=== PATIENT | female | born 1980 | race Caucasian/White ===

== ENCOUNTER 2017-08-18 09:44 | Emergency (ER) | payer SELFPAY ==
[2017-08-18] MEDS ORDERED: Sodium Chloride 0.9% 1000 ML 1,000 ML IV STA (09:57)
[2017-08-18] MEDS ORDERED: Pepcid 20 MG VIAL IV ONE ×2 (09:57→10:08)
[2017-08-18] MEDS ORDERED: MORPHINE SULFATE 4 MG INJ IV ONE (09:57)
[2017-08-18 10:00] VITALS: O2SAT 96
[2017-08-18] MEDS ORDERED: MORPHINE SULFATE 4 MG INJ ONE (10:08)
[2017-08-18] MEDS ORDERED: Sodium Chloride 0.9% 1000 ML 1,000 ML ONE (10:08)
--- NOTE | 2017-08-18 10:12 | ERPHSYRPT ---
- History of Present Illness Time Seen by Provider: 08/18/17 10:10 Historian: patient Exam Limitations: no limitations Patient Subjective Stated Complaint: mid abd pain since last night. vomitied times one today Triage Nursing Assessment: patient crying, holding abd. skin w/d, color normal , resp nonlabored. abd soft, normal bowel sounds. Physician History: mid abdominal pain since last night. vomiting times one today Timing/Duration: today Activities at Onset: none Quality: cramping Abdominal Pain Onset Location: epigastric Pain Radiation: back Severity of Pain-Max: moderate Severity of Pain-Current: moderate Associated Symptoms: loss of appetite, nausea, vomiting Previous symptoms: no prior history Allergies/Adverse Reactions: nickel [Nickel] Allergy (Mild, Verified 08/18/17 09:56) Swelling Home Medications: Hydrocodone Bit/Acetaminophen [[place] 5/325Mg] 1 each PO UD PRN 12/28/14 [History ] Metoprolol Succinate [Toprol Xl] 0 mg PO DAILY 12/28/14 [History] Hx Tetanus, Diphtheria Vaccination/Date Given: No Hx Influenza Vaccination/Date Given: No Hx Pneumococcal Vaccination/Date Given: No - Review of Systems Constitutional: No Fever, No Chills Eyes: No Symptoms Ears, Nose, & Throat: No Symptoms Respiratory: No Cough, No Dyspnea Cardiac: No Chest Pain, No Edema, No Syncope Abdominal/Gastrointestinal: Abdominal Pain, Nausea, Vomiting, Appetite Changes, No Diarrhea, No Constipation, No Hematemesis, No Hematochezia, No Melena, No Dysphagia Genitourinary Symptoms: No Dysuria Musculoskeletal: No Back Pain, No Neck Pain Skin: No Rash Neurological: No Dizziness, No Focal Weakness, No Sensory Changes Psychological: No Symptoms Endocrine: No Symptoms All Other Systems: Reviewed and Negative - Past Medical History Pertinent Past Medical History: No Neurological History: No Pertinent History ENT History: No Pertinent History Cardiac History: No Pertinent History Respiratory History: No Pertinent History Endocrine Medical History: No Pertinent History Musculoskeletal History: No Pertinent History GI Medical History: No Pertinent History History: No Pertinent History Psycho-Social History: No Pertinent History Female Reproductive Disorders: No Pertinent History Other Medical History: pt denies any past medical issues - Past Surgical History Past Surgical History: Yes Neuro Surgical History: No Pertinent History Cardiac: No Pertinent History Respiratory: No Pertinent History Gastrointestinal: No Pertinent History Genitourinary: No Pertinent History Musculoskeletal: No Pertinent History Female Surgical History: Section, Tubal Ligation - Social History Smoking Status: Current every day smoker How long have you smoked: yrs Exposure to second hand smoke: No Drug Use: none Patient Lives Alone: No Significant Family History: no pertinent family hx - Female History Hx Last Menstrual Period: now Hx Now: No - Nursing Vital Signs Nursing Vital Signs: Initial Vital Signs Pulse Rate 64 08/18/17 09:47 Respiratory Rate 20 08/18/17 09:47 Blood Pressure 194/94 08/18/17 09:47 O2 Sat by Pulse Oximetry 96 08/18/17 09:47 Pain Scale Pain Intensity 10 - Physical Exam General Appearance: no apparent distress, alert Eye Exam: PERRL/EOMI, eyes nml inspection Ears, Nose, Throat Exam: normal ENT inspection, pharynx normal, moist mucous membranes Neck Exam: normal inspection, non-tender, supple, full range of motion Respiratory Exam: normal breath sounds, lungs clear, No respiratory distress Cardiovascular Exam: regular rate/rhythm, normal heart sounds Gastrointestinal/Abdomen Exam: soft, tenderness (epigastric area), No mass Back Exam: normal inspection, normal range of motion, No CVA tenderness, No vertebral tenderness Extremity Exam: normal inspection, normal range of motion, pelvis stable Neurologic Exam: alert, oriented x 3, cooperative, normal mood/affect, nml cerebellar function, sensation nml, No motor deficits Skin Exam: normal color, warm, dry SpO2: 96 Oxygen Delivery: Room Air - Course Nursing assessment & vital signs reviewed: Yes - CT Exams Abdomen/Pelvis CT Interpretation: Tele-radiologist Report Ordered Tests: Active Orders 24 hr Category Date Time Status ABDOMEN AND PELVIS W/0 CONTRAS [CT] Stat Exams 08/18/17 10:41 Taken AMYLASE Stat Lab 08/18/17 10:13 Completed CBC W DIFF Stat Lab 08/18/17 10:13 Completed CMP Stat Lab 08/18/17 10:13 Completed CULTURE,URINE Stat Lab 08/18/17 10:30 Received HCG QUALITATIVE,SERUM Stat Lab 08/18/17 10:13 Completed LIPASE Stat Lab 08/18/17 10:13 Completed Lactic Acid Stat Lab 08/18/17 10:11 Completed UA W/ MICROSCOPIC Stat Lab 08/18/17 10:30 Completed Urine Triage Profile Stat Lab 08/18/17 10:30 Completed Medication Summary Discontinued Medications Generic Name Dose Route Start Last Admin Trade Name Freq PRN Reason Stop Dose Admin Famotidine 20 mg 08/18/17 09:57 08/18/17 10:11 Pepcid 20 Mg Vial IV 08/18/17 09:58 20 mg STAT ONE Administration Famotidine Confirm 08/18/17 10:08 Pepcid 20 Mg Vial Administered 08/18/17 10:09 Dose 20 mg IV .STK-MED ONE Fentanyl Citrate 50 mcg 08/18/17 10:32 08/18/17 10:37 Sublimaze 100 Mcg/2 Ml IV 08/18/17 10:33 50 mcg STAT ONE Administration Fentanyl Citrate Confirm 08/18/17 10:35 Sublimaze 100 Mcg/2 Ml Administered 08/18/17 10:36 Dose 100 mcg .ROUTE .STK-MED ONE Sodium Chloride 1,000 mls @ 999 mls/hr 08/18/17 09:57 08/18/17 10:11 Sodium Chloride 0.9% 1000 Ml IV 08/18/17 10:57 999 mls/hr .Q1H1M STA Administration Sodium Chloride Confirm 08/18/17 10:08 Sodium Chloride 0.9% 1000 Ml Administered 08/18/17 10:09 Dose 1,000 mls @ ud .ROUTE .STK-MED ONE Cefazolin Sodium/Dextrose 1 gm in 50 mls @ 100 mls/hr 08/18/17 10:45 11:03 Kefzol 1 Gm/50 Ml Premix IV 08/18/17 11:14 100 mls/hr STAT STA Administration Cefazolin Sodium/Dextrose Confirm 08/18/17 10:50 Kefzol 1 Gm/50 Ml Premix Administered 08/18/17 10:51 Dose 1 gm in 50 mls @ ud IV .STK-MED ONE Morphine Sulfate 4 mg 08/18/17 09:57 08/18/17 10:11 Morphine Sulfate 4 Mg Inj IV 08/18/17 09:58 4 mg STAT ONE Administration Morphine Sulfate Confirm 08/18/17 10:08 Morphine Sulfate 4 Mg Inj Administered 08/18/17 10:09 Dose 4 mg .ROUTE .STK-MED ONE Lab/Rad Data: Laboratory Result Diagrams 08/18/17 10:13 08/18/17 10:13 Laboratory Results 08/18/17 08/18/17 08/18/17 Range/Units 10:30 10:30 10:13 WBC (4.0-10.5) K/mm3 RBC (4.1-5.4) M/mm3 Hgb (12.0-16.0) gm/dl Hct (35-47) % MCV (78-100) fl MCH (26-32) pg MCHC (32-36) g/dl RDW (11.5-14.0) % Plt Count (150-450) K/mm3 MPV (6-9.5) fl Gran % (36.0-66.0) % Lymphocytes % (24.0-44.0) % Monocytes % (0.0-12.0) % Eosinophils % (0.00-5.0) % Basophils % (0.0-0.4) % Basophils # (0-0.4) Sodium (136-145) mEq/L Potassium (3.5-5.1) mEq/L Chloride (98-107) mEq/L Carbon Dioxide (21-32) mEq/L Anion Gap (5-15) MEQ/L BUN (9-20) mg/dL Creatinine (0.55-1.30) mg/dl Estimated GFR ML/MIN Glucose (70-110) MG/DL Lactic Acid (0.4-2.0) Calcium (8.5-10.1) mg/dL Total Bilirubin (0.2-1.0) mg/dL AST (15-37) U/L ALT (12-78) U/L Alkaline Phosphatase (46-116) U/L Serum Total Protein (6.4-8.2) gm/dL Albumin (3.4-5.0) g/dL Amylase (25-115) U/L Lipase (73-393) U/L Serum , Qual NEGATIVE (Negative) Ur Collection Type CLEAN CATCH Urine Color YELLOW (YELLOW) Urine Appearance HAZY (CLEAR) Urine pH 7.0 (5-6) Ur Specific [place] 1.010 (1.005-1.025) Urine Protein NEGATIVE (Negative) Urine Ketones NEGATIVE (NEGATIVE) Urine Blood 250 (0-5) Josh/ul Urine Nitrite NEGATIVE (NEGATIVE) Urine Bilirubin NEGATIVE (NEGATIVE) Urine Urobilinogen NORMAL (0-1) mg/dL Ur Leukocyte Esterase TRACE (NEGATIVE) Urine Microscopic RBC 0-2 (0-2) /HPF Urine Microscopic WBC 0-2 (0-5) /HPF Ur Epithelial Cells FEW (FEW) /HPF Urine Bacteria FEW (NEGATIVE) /HPF Urine Mucus SLIGHT (NEGATIVE) /HPF Urine Culture Reflexed YES (NO) Urine Glucose NEGATIVE (NEGATIVE) mg/dL Urine Opiates Level POS. (NEGATIVE) Ur Methadone NEG. (NEGATIVE) Urine Barbiturates NEG. (NEGATIVE) Ur Phencyclidine (PCP) NEG. (NEGATIVE) Urine Amphetamine NEG. (NEGATIVE) U Benzodiazepine Level NEG. (NEGATIVE) Urine Cocaine NEG. (NEGATIVE) Urine Marijuana (THC) NEG. (NEGATIVE) Specimen Received 08-18 1030 08/18/17 08/18/17 08/18/17 Range/Units 10:13 10:13 10:11 WBC 12.2 H (4.0-10.5) K/mm3 RBC 4.38 (4.1-5.4) M/mm3 Hgb 13.9 (12.0-16.0) gm/dl Hct 41.7 (35-47) % MCV 95.2 (78-100) fl MCH 31.7 (26-32) pg MCHC 33.3 (32-36) g/dl RDW 12.5 (11.5-14.0) % Plt Count 179 (150-450) K/mm3 MPV 10.4 H (6-9.5) fl Gran % 81.6 H (36.0-66.0) % Lymphocytes % 12.5 L (24.0-44.0) % Monocytes % 4.6 (0.0-12.0) % Eosinophils % 1.1 (0.00-5.0) % Basophils % 0.2 (0.0-0.4) % Basophils # 0.02 (0-0.4) Sodium 138 (136-145) mEq/L Potassium 4.0 (3.5-5.1) mEq/L Chloride 107 (98-107) mEq/L Carbon Dioxide 19.8 L (21-32) mEq/L Anion Gap 15.0 (5-15) MEQ/L BUN 10 (9-20) mg/dL Creatinine 0.88 (0.55-1.30) mg/dl Estimated GFR > 60 ML/MIN Glucose 103 (70-110) MG/DL Lactic Acid 0.7 (0.4-2.0) Calcium 8.6 (8.5-10.1) mg/dL Total Bilirubin 0.20 (0.2-1.0) mg/dL AST 29 (15-37) U/L ALT 31 (12-78) U/L Alkaline Phosphatase 63 (46-116) U/L Serum Total Protein 7.0 (6.4-8.2) gm/dL Albumin 3.6 (3.4-5.0) g/dL Amylase 39 (25-115) U/L Lipase 109 (73-393) U/L Serum , Qual (Negative) Ur Collection Type Urine Color (YELLOW) Urine Appearance (CLEAR) Urine pH (5-6) Ur Specific [place] (1.005-1.025) Urine Protein (Negative) Urine Ketones (NEGATIVE) Urine Blood (0-5) Josh/ul Urine Nitrite (NEGATIVE) Urine Bilirubin (NEGATIVE) Urine Urobilinogen (0-1) mg/dL Ur Leukocyte Esterase (NEGATIVE) Urine Microscopic RBC (0-2) /HPF Urine Microscopic WBC (0-5) /HPF Ur Epithelial Cells (FEW) /HPF Urine Bacteria (NEGATIVE) /HPF Urine Mucus (NEGATIVE) /HPF Urine Culture Reflexed (NO) Urine Glucose (NEGATIVE) mg/dL Urine Opiates Level (NEGATIVE) Ur Methadone (NEGATIVE) Urine Barbiturates (NEGATIVE) Ur Phencyclidine (PCP) (NEGATIVE) Urine Amphetamine (NEGATIVE) U Benzodiazepine Level (NEGATIVE) Urine Cocaine (NEGATIVE) Urine Marijuana (THC) (NEGATIVE) Specimen Received - Progress Progress: improved, pain not gone completely Progress Note: 08/18/17 11:25 Patient is feeling much better, though she still has some episode of nausea. Patient states that she drank hard liquor 24 hours ago and since then she has been sick. Patient is strongly advised not to drink hard liquor as well as stay away from fatty and greasy food as her CAT scan is showing weekly calcified gallstone in gallbladder. Patient is advised to take Pepcid 20 mg twice a day [id number] as well as Nexium 40 mg at night, which is also available [id number]. She is advised to use Mylanta for stomach pain relief. Patient and her . They both understood the instructions. Counseled pt/family regarding: lab results, diagnosis, need for follow-up, rad results - Departure Time of Disposition: 11:32 Departure Disposition: Home Clinical Impression: UTI (urinary tract infection) Qualifiers: Urinary tract infection type: site unspecified Hematuria presence: without hematuria Qualified Code(s): N39.0 - Urinary tract infection, site not specified GERD (gastroesophageal reflux disease) Qualifiers: Esophagitis presence: with esophagitis Qualified Code(s): K21.0 - Gastro- esophageal reflux disease with esophagitis Gall stone Qualifiers: Cholecystitis presence: without cholecystitis Biliary obstruction: without biliary obstruction Qualified Code(s): K80.20 - Calculus of gallbladder without cholecystitis without obstruction Condition: Stable Critical Care Time: Yes Critical Care Time(excluding separately billable procedures): 30-74 minutes Referrals: SERENITY MCCONNELL [Primary Care Provider] - Instructions: Abdominal Pain-Adult Additional Instructions: URINARY TRACT INFECTION 1. You will need to drink plenty of fluids in order to keep your urinary system flushed. These fluids should mainly consist of water and juices. 2. Take medications as directed. You need to completely finish any antiobiotic prescription given. 3. Try to avoid coffee, tea, alcohol, and seasoned foods as they may cause bladder irritation. 4. If signs and symptoms persist after 3-4 days, you will need to follow up with your family physician. 5. Female Patients: A. Avoid intercourse for 3-4 days. B. Empty bladder before and after intercourse to reduce risk of re- infection. C. After emptying bladder, wipe from front to back to reduce the risk of re- infection. Please take Pepcid 20 mg twice a day for 7 days, Nexium 40 mg at night for 7 days for your acid reflux and abdominal pain. These both medicines are over-the -counter available. Please stay away from fatty and greasy food, as well as alcohol beverage. Please take Mylanta to help to soothe your stomach pain. Please take antibiotic as prescribed for 7 days for your urinary tract infection. Follow-up with your primary care physician for further management of your above problems. If symptoms get worse, come back to the emergency room. Prescriptions: Smz/Tmp Ds Tablet [Bactrim Ds Tablet] 1 udtab PO BID #20 tablet Promethazine HCl 25 mg PO QIDPRN PRN #20 tablet PRN Reason: Nausea/Vomiting
[2017-08-18 10:14] LABS: BASOPHIL % 0.2 % (0.0-0.4); Eosinophil % 1.1 % (0.00-5.0); Granulocytes % 81.6 % (36.0-66.0); Lymphocytes % 12.5 % (24.0-44.0); Mean Cell Volume 95.2 fl (78-100); Mean Corpuscular Hemoglobin 31.7 pg (26-32); Mean Platelet Volume 10.4 fl (6-9.5); Monocytes % 4.6 % (0.0-12.0); Platelet Count 179 K/mm3 (150-450); Red Blood Count 4.38 M/mm3 (4.1-5.4); Red Cell Distribution Width 12.5 % (11.5-14.0); White Blood Count 12.2 K/mm3 (4.0-10.5)
[2017-08-18] MEDS ORDERED: SUBLIMAZE 100 MCG/2 ML IV ONE (10:32)
[2017-08-18] MEDS ORDERED: SUBLIMAZE 100 MCG/2 ML ONE (10:35)
[2017-08-18 10:37] LABS: BLOOD UREA NITROGEN 10 mg/dL (9-20); CHLORIDE 107 mEq/L (98-107); Carbon Dioxide 19.8 mEq/L (21-32); Glucose 103 MG/DL (70-110); SODIUM 138 mEq/L (136-145)
[2017-08-18 10:38] LABS: ALBUMIN 3.6 g/dL (3.4-5.0); ALKALINE PHOSPHATASE 63 U/L (46-116); LIPASE 109 U/L (73-393); SGOT/AST 29 U/L (15-37); SGPT/ALT 31 U/L (12-78)
[2017-08-18] MEDS ORDERED: KEFZOL 1 GM/50 ML PREMIX** 1 GM/50 ML IVPB IV STA (10:45)
[2017-08-18 10:48] VITALS: BP 147/75; PULSE 66
[2017-08-18 10:48] LABS: Bilirubin NEGATIVE (NEGATIVE); Blood 250 Ery/ul (0-5); COMPLETE URINE MICROSCOPIC? YES; Collection Type CLEAN CATCH; Glucose NEGATIVE (NEGATIVE); Leukocyte Esterase TRACE (NEGATIVE)
[2017-08-18 10:49] LABS: ADD URINE CULTURE? YES (NO); Bacteria FEW /HPF (NEGATIVE); Epithelial Cells FEW /HPF (FEW); Mucus SLIGHT /HPF (NEGATIVE); WBC 0-2 /HPF (0-5)
[2017-08-18] MEDS ORDERED: KEFZOL 1 GM/50 ML PREMIX** 1 GM/50 ML IVPB IV ONE (10:50)
[2017-08-18] MEDS ORDERED: GI COCKTAIL 45 ML (Maalox/Lidocaine) PO ONE (11:34)
[2017-08-18] MEDS ORDERED: PHENERGAN 25 MG PO PRN (11:35)
[2017-08-18] MEDS ORDERED: XYLOCAINE HCl Viscous ONE (11:40)
[2017-08-18] MEDS ORDERED: MAALOX ES 30 ML UNIT DOSE ONE (11:40)
[2017-08-18] MEDS ORDERED: PHENERGAN 25 MG ONE (11:42)
--- NOTE | 2017-08-18 21:16 | XRAY ---
Indication: Abdominal pain. Multiple contiguous axial images obtained through the abdomen and pelvis without contrast as ordered. Comparison: September 20, 2014. Lung bases demonstrate stable left base/granulomas. No infiltrate, consolidation, or effusion. Heart is not enlarged. Noncontrasted stomach and bowel loops appear nonobstructed. Normal appendix. Minimal sigmoid diverticulosis without diverticulitis. Tampon in situ with now tiny cul-de-sac fluid presumed from a ruptured/leaking cyst. No free air. Stable fatty liver. There is now a 2.2 cm gallstone. Remaining liver, pancreas, spleen, adrenal glands, kidneys, ureters, bladder, and aorta appear unremarkable for noncontrast exam. Osseous structures intact. Impression: 1. New gallstone. Gallbladder sonogram may yield further information if clinically warranted. 2. Tiny cul-de-sac fluid presumed from ruptured/leaking cyst. 3. Minimal sigmoid diverticulosis. 4. Fatty liver. Comment: Preliminary interpretation was made by C. No critical discrepancy. CTDI 28.13
== END 2017-08-18 11:57 | disposition home or self-care (01) ==
LOC: ED 09:44
DX: N39.0 Urinary tract infection, site not specified (principal); K21.0 Gastro-esophageal reflux disease with esophagitis; K80.20 Calculus of gallbladder without cholecystitis without obstruction; R10.9 Unspecified abdominal pain; R11.2 Nausea with vomiting, unspecified; Z79.899 Other long term (current) drug therapy; Z79.891 Long term (current) use of opiate analgesic
CPT/HCPCS: 36000; 36415; 74176; 80053; 80307; 81000; 82150; 83605; 83690; 84703; 85025; 87086; 96360; 96365; 96374; 96375; 99284; J0690; J2270; J3010; A9270-GY

== ENCOUNTER 2020-03-23 03:40 | Emergency (ER) | payer SELFPAY ==
--- NOTE | 2020-03-23 04:03 | ERPHSYRPT ---
- History of Present Illness Time Seen by Provider: 03/23/20 03:40 Source: patient, family Exam Limitations: clinical condition Physician History: This is a 39-year-old obese white female who has had a history in the distant past of arrhythmias and was taking metoprolol for it. She is not taking any medication at this time. It was difficult to obtain history from the patient because of her clinical condition. Meaning, she was having chest pain that was central sharp and nonradiating. In addition, she was slurring her speech and was very tearful and searching for words. However, we were able to obtain history from the patient's spouse and daughter. Patient woke up this morning and was fine during the day. She had had several interactions with her daughter and text communications with her prior to her going to her overnight shift at 6 PM. At approximately 2:25 AM the patient texted her and stated that she was having some "problems with her heart" and was going to leave work early. Her daughter picked her up from work and went home rather than the hospital. Patient began having some chest pain as described above and was confused and searching for words and slurring her speech. Patient states that she is never had a thing like this before. Although the patient denied any new stressful situations or conditions, the states that in the past week she has been working on it and difficult hours at work. Meaning she normally works at 2 PM to 10 PM shift and is now doing 12-hour shifts and overnight shift 6 PM to 6 AM. Patient denies illicit drug use. Patient states that her left side feels numb and and weaker than her right side. Timing/Duration: today Severity: moderate Associated Symptoms: chest pain, weakness Allergies/Adverse Reactions: nickel [Nickel] Allergy (Mild, Verified 03/23/20 05:32) Swelling Home Medications: No Reportable Medications [No Reported Medications] 03/23/20 [History] Hx Tetanus, Diphtheria Vaccination/Date Given: No Hx Influenza Vaccination/Date Given: No Hx Pneumococcal Vaccination/Date Given: No Travel Risk - International Travel Have you traveled outside of the country in past 3 weeks: No - Coronavirus Screening Are you exhibiting any of the following symptoms?: No Close contact with a COVID-19 positive Pt in past 14-21 Days: No - Review of Systems Constitutional: Lethargy, Weakness Eyes: No Symptoms Ears, Nose, & Throat: No Symptoms Respiratory: No Symptoms Cardiac: Chest Pain Abdominal/Gastrointestinal: No Symptoms Genitourinary Symptoms: No Symptoms Skin: No Symptoms Neurological: Parasthesia (Left side) Psychological: No Symptoms Endocrine: No Symptoms Hematologic/Lymphatic: No Symptoms Immunological/Allergic: No Symptoms All Other Systems: Reviewed and Negative - Past Medical History Pertinent Past Medical History: No Neurological History: No Pertinent History ENT History: No Pertinent History Cardiac History: No Pertinent History Respiratory History: No Pertinent History Endocrine Medical History: No Pertinent History Musculoskeletal History: No Pertinent History GI Medical History: No Pertinent History History: No Pertinent History Psycho-Social History: No Pertinent History Female Reproductive Disorders: No Pertinent History Other Medical History: pt denies any past medical issues - Past Surgical History Past Surgical History: Yes Neuro Surgical History: No Pertinent History Cardiac: No Pertinent History Respiratory: No Pertinent History Gastrointestinal: No Pertinent History Genitourinary: No Pertinent History Musculoskeletal: No Pertinent History Female Surgical History: Section, Tubal Ligation - Social History Smoking Status: Current every day smoker How long have you smoked: yrs Exposure to second hand smoke: No Drug Use: none Patient Lives Alone: No Significant Family History: no pertinent family hx - Female History Hx Now: No - Nursing Vital Signs Nursing Vital Signs: Initial Vital Signs Temperature 97.2 F 03/23/20 03:51 Pulse Rate 74 03/23/20 03:51 Respiratory Rate 16 03/23/20 03:51 Blood Pressure 151/99 03/23/20 03:51 O2 Sat by Pulse Oximetry 100 03/23/20 03:51 Pain Scale Pain Intensity 0 - Physical Exam General Appearance: moderate distress, anxiety, lethargy, obese Eye Exam: PERRL/EOMI, eyes nml inspection Ears, Nose, Throat Exam: normal ENT inspection, moist mucous membranes Neck Exam: normal inspection, non-tender, supple, full range of motion Respiratory Exam: normal breath sounds, chest tenderness, lungs clear, No respiratory distress, No airway intact Cardiovascular Exam: regular rate/rhythm, normal heart sounds, normal peripheral pulses Gastrointestinal/Abdomen Exam: soft, normal bowel sounds, No tenderness Pelvic Exam: not done Rectal Exam: not done Back Exam: normal inspection, normal range of motion, No CVA tenderness Extremity Exam: normal inspection, normal range of motion, pelvis stable, parasthesia (And which she said they got for the neuro score she appreciated that paperwork may she has not had a) Neurologic Exam: alert, oriented x 3, cooperative, rough rice grader II-XII nml as tested, normal mood/affect, disoriented, confusion, intoxicated appearance, slurred speech, No facial droop Skin Exam: normal color, warm, dry Lymphatic Exam: No adenopathy SpO2 Interpretation: normal O2 Delivery: Room Air - Course Nursing assessment & vital signs reviewed: Yes EKG Interpreted by Me: RATE (60), Sinus Rhythm, NORMAL AXIS, NORMAL INTERVALS, NORMAL QRS, Other (No acute ischemic changes. There is no comparison EKG available) Ordered Tests: Active Orders 24 hr Category Date Time Status Accucheck STAT Care 03/23/20 03:48 Active Stamping Bench Die Maker STAT Care 03/23/20 03:50 Active Catheter-[place] STAT Care 03/23/20 03:48 Active EKG-ER Only STAT Care 03/23/20 03:48 Active NPO (ED) STAT Care 03/23/20 03:48 Active Pulse Oximetry (ED) STAT Care 03/23/20 03:48 Active CHEST 1 VIEW (PORTABLE) Stat Exams 03/23/20 03:[address] ANGIOGRAPHY NECK [CT] Stat Exams 03/23/20 05:20 Ordered CTA HEAD W AND/OR WO CONTRAST [CT] Urgent Exams 03/23/20 05:19 Ordered HEAD WITHOUT CONTRAST [CT] Stat Exams 03/23/20 03:49 Taken CBC W DIFF Stat Lab 03/23/20 03:59 Completed CMP Stat Lab 03/23/20 03:59 Completed CULTURE,URINE Stat Lab 03/23/20 04:38 Received D-DIMER QUANTITATIVE Stat Lab 03/23/20 03:59 Completed HCG,QUALITATIVE URINE Stat Lab 03/23/20 04:38 Completed PROTIME WITH INR Stat Lab 03/23/20 03:59 Completed TROPONIN Q3H Lab 03/23/20 04:05 Completed TROPONIN Q3H Lab 03/23/20 07:00 Ordered TROPONIN Q3H Lab 03/23/20 10:00 Ordered TROPONIN Q3H Lab 03/23/20 13:00 Ordered TROPONIN Q3H Lab 03/23/20 16:00 Ordered UA W/RFX UR CULTURE Stat Lab 03/23/20 04:38 Completed Medication Summary Discontinued Medications Generic Name Dose Route Start Last Admin Trade Name Freq PRN Reason Stop Dose Admin Alteplase, Recombinant 90 mg 03/23/20 06:15 03/23/20 06:17 Activase 100 Mg IV 03/23/20 06:16 90 mg STAT STA Administration Famotidine 40 mg 03/23/20 06:30 03/23/20 06:32 Pepcid 20 Mg Vial IV 03/23/20 06:31 40 mg STAT ONE Administration Famotidine Confirm 03/23/20 06:30 Pepcid 20 Mg Vial Administered 03/23/20 06:31 Dose 40 mg IV .STK-MED ONE Ondansetron HCl 4 mg 03/23/20 06:05 03/23/20 06:06 Zofran 4 Mg/2 Ml Vial IV 03/23/20 06:06 4 mg STAT ONE Administration Ondansetron HCl Confirm 03/23/20 06:04 Zofran 4 Mg/2 Ml Vial Administered 03/23/20 06:05 Dose 4 mg .ROUTE .STK-MED ONE Ondansetron HCl 4 mg 03/23/20 06:30 03/23/20 06:32 Zofran 4 Mg/2 Ml Vial IV 03/23/20 06:31 4 mg STAT ONE Administration Ondansetron HCl Confirm 03/23/20 06:30 Zofran 4 Mg/2 Ml Vial Administered 03/23/20 06:31 Dose 4 mg .ROUTE .STK-MED ONE Tranexamic Acid Confirm 03/23/20 04:52 Tranexamic Acid 1000 Mg/10 Ml Administered 03/23/20 04:53 Dose 1,000 mg .ROUTE .STK-MED ONE Lab/Rad Data: Laboratory Result Diagrams 03/23/20 03:59 03/23/20 03:59 Laboratory Results 03/23/20 03/23/20 03/23/20 Range/Units 04:38 04:38 04:05 WBC (4.0-10.5) K/mm3 RBC (4.1-5.4) M/mm3 Hgb (12.0-16.0) gm/dl Hct (35-47) % MCV (78-100) fl MCH (26-32) pg MCHC (32-36) g/dl RDW (11.5-14.0) % Plt Count (150-450) K/mm3 MPV (7.5-11.0) fl Gran % (36.0-66.0) % Eos # (Auto) (0-0.5) Absolute Lymphs (auto) (1.0-4.6) Absolute Monos (auto) (0.0-1.3) Lymphocytes % (24.0-44.0) % Monocytes % (0.0-12.0) % Eosinophils % (0.00-5.0) % Basophils % (0.0-0.4) % Absolute Granulocytes (1.4-6.9) Basophils # (0-0.4) PT (9.95-12.35) SECONDS INR (0.8-3.0) D-Dimer (215-500) ng/mL Sodium (137-145) mmol/L Potassium (3.5-5.1) mmol/L Chloride (98-107) mmol/L Carbon Dioxide (22-30) mmol/L Anion Gap (5-15) MEQ/L BUN (7-17) mg/dL Creatinine (0.52-1.04) mg/dL Estimated GFR ML/MIN Glucose (74-106) mg/dL Calcium (8.4-10.2) mg/dL Total Bilirubin (0.2-1.3) mg/dL AST (14-36) U/L ALT (0-35) U/L Alkaline Phosphatase (38-126) U/L Troponin I < 0.012 (0.000-0.034) ng/mL Serum Total Protein (6.3-8.2) g/dL Albumin (3.5-5.0) g/dL Urine Color LEE (YELLOW) Urine Appearance SLIGHTLY CLOUDY (CLEAR) Urine pH 5.0 (5-6) Ur Specific [place] 1.031 (1.005-1.025) Urine Protein 30 (Negative) Urine Ketones SMALL (NEGATIVE) Urine Blood NEGATIVE (0-5) Josh/ul Urine Nitrite NEGATIVE (NEGATIVE) Urine Bilirubin NEGATIVE (NEGATIVE) Urine Urobilinogen 2 (0-1) mg/dL Ur Leukocyte Esterase NEGATIVE (NEGATIVE) Urine WBC (Auto) 0-2 (0-5) /HPF Urine RBC (Auto) NONE (0-2) /HPF U Hyaline Cast (Auto) 0-2 (0-2) /LPF U Epithel Cells (Auto) RARE (FEW) /HPF Urine Bacteria (Auto) NONE SEEN (NEGATIVE) /HPF Urine Mucus (Auto) SLIGHT (NEGATIVE) /HPF Urine Culture Reflexed ORDERED SEPARATELY (NO) Urine Glucose NEGATIVE (NEGATIVE) mg/dL Urine HCG, Qual NEGATIVE (Negative) 03/23/20 03/23/20 03/23/20 Range/Units 03:59 03:59 03:59 WBC 8.6 (4.0-10.5) K/mm3 RBC 4.26 (4.1-5.4) M/mm3 Hgb 13.6 (12.0-16.0) gm/dl Hct 41.0 (35-47) % MCV 96.2 (78-100) fl MCH 31.9 (26-32) pg MCHC 33.2 (32-36) g/dl RDW 13.3 (11.5-14.0) % Plt Count 213 (150-450) K/mm3 MPV 11.3 H (7.5-11.0) fl Gran % 59.6 (36.0-66.0) % Eos # (Auto) 0.22 (0-0.5) Absolute Lymphs (auto) 2.61 (1.0-4.6) Absolute Monos (auto) 0.63 (0.0-1.3) Lymphocytes % 30.4 (24.0-44.0) % Monocytes % 7.3 (0.0-12.0) % Eosinophils % 2.6 (0.00-5.0) % Basophils % 0.1 (0.0-0.4) % Absolute Granulocytes 5.12 (1.4-6.9) Basophils # 0.01 (0-0.4) PT 12.1 (9.95-12.35) SECONDS INR 1.07 (0.8-3.0) D-Dimer 291 (215-500) ng/mL Sodium 140 (137-145) mmol/L Potassium 3.9 (3.5-5.1) mmol/L Chloride 108 H (98-107) mmol/L Carbon Dioxide 19 L (22-30) mmol/L Anion Gap 16.2 H (5-15) MEQ/L BUN 13 (7-17) mg/dL Creatinine 0.92 (0.52-1.04) mg/dL Estimated GFR > 60.0 ML/MIN Glucose 98 (74-106) mg/dL Calcium 9.8 (8.4-10.2) mg/dL Total Bilirubin 0.70 (0.2-1.3) mg/dL AST 30 (14-36) U/L ALT 21 (0-35) U/L Alkaline Phosphatase 81 (38-126) U/L Troponin I (0.000-0.034) ng/mL Serum Total Protein 8.0 (6.3-8.2) g/dL Albumin 4.8 (3.5-5.0) g/dL Urine Color (YELLOW) Urine Appearance (CLEAR) Urine pH (5-6) Ur Specific [place] (1.005-1.025) Urine Protein (Negative) Urine Ketones (NEGATIVE) Urine Blood (0-5) Josh/ul Urine Nitrite (NEGATIVE) Urine Bilirubin (NEGATIVE) Urine Urobilinogen (0-1) mg/dL Ur Leukocyte Esterase (NEGATIVE) Urine WBC (Auto) (0-5) /HPF Urine RBC (Auto) (0-2) /HPF U Hyaline Cast (Auto) (0-2) /LPF U Epithel Cells (Auto) (FEW) /HPF Urine Bacteria (Auto) (NEGATIVE) /HPF Urine Mucus (Auto) (NEGATIVE) /HPF Urine Culture Reflexed (NO) Urine Glucose (NEGATIVE) mg/dL Urine HCG, Qual (Negative) - Progress Progress: improved, re-examined Progress Note: 03/23/20 05:08 CAT scan of the head reveals no acute intracranial abnormality. There are no tumors and no hemorrhages present. There is no midline shift. Medical decision making: This patient, although CAT scan is negative for any acute intracranial abnormality, clinically is having a cerebral infarct. Tele- neurology was consulted. Dr. Levine is the neurologist. He performed the tele- neurology consultation and evaluation. He agrees that TPA should be started. He and I discussed the benefits and risks of the use of TPA in detail with patient and family. The patient and family family agree to proceed. Dr. Levine is staying on line during the infusion of the bolus and starting of the maintenance infusion. TPA bolus started at approximately 5:10 AM. 03/23/20 05:11 03/23/20 05:16 Dr. Levine also wants a CAT scan with IV contrast of the head and neck. I reexamined the patient after the bolus has been infused. Clinically, she has rapidly improved. Her numbness and swollen tongue sensation has resolved. She is speaking more clearly and verbal responses are more rapid. It is obvious there is improvement. She is moving all her extremities near normal for her she states. 03/23/20 05:37 The patient's admission stroke scale was 12. The repeat stroke scale at 525, approximately 15 minutes after the bolus given and infusion started, decreased to a 3. I spoke to Dr. Simeon, the hospitalist at [facility]. I reviewed the patient history, condition, laboratory data, EKG results, and results of the CAT scan of the patient's head and the interaction with Dr. Levine the tele- neurologist. The plan is to perform a CTA of the head and neck as recommended by Dr. Levine then transfer the patient to [facility]. Dr. Simeon accepts the patient for transfer. 03/23/20 06:46 Patient has already been accepted to [facility]. The physician paperwork has been completed. We are waiting bed assignment. I will review the patient history, condition, laboratory results, EKG and current CAT scan findings with Dr. Morales. He will be aware that the CAT scan with contrast of the head and neck is pending and he will check up on that study result. Once that is completed, the results will be placed on the cloud and the patient will be transferred when bed assignment has occurred. Dr. Morales accepts patient at shift change. Counseled pt/family regarding: lab results, diagnosis, rad results - Departure Departure Disposition: Transfer Clinical Impression: Acute CVA (cerebrovascular accident) Condition: Stable Critical Care Time: Yes Critical Care Time(excluding separately billable procedures): Critical 30-74 mins Referrals: DOCTOR,NO FAMILY [Primary Care Provider] -
[2020-03-23 04:13] LABS: Absolute Neutrophil Ct (ANC) 5.12 (1.4-6.9); BASOPHIL % 0.1 % (0.0-0.4); Basophil (Absolute #) 0.01 (0-0.4); Eosinophil % 2.6 % (0.00-5.0); Eosinophil (Absolute #) 0.22 (0-0.5); Hemoglobin 13.6 gm/dl (12.0-16.0); INR 1.07 (0.8-3.0); Lymphocyte (Absolute #) 2.61 (1.0-4.6); Lymphocytes % 30.4 % (24.0-44.0); Mean Cell Volume 96.2 fl (78-100); Mean Corpuscular Hemoglobin 31.9 pg (26-32); Mean Corpuscular Hgb Concent. 33.2 g/dl (32-36); Mean Platelet Volume 11.3 fl (7.5-11.0); Monocyte (Absolute #) 0.63 (0.0-1.3); Monocytes % 7.3 % (0.0-12.0); Neutrophil % 59.6 % (36.0-66.0); PROTIME 12.1 SECONDS (9.95-12.35); Platelet Count 213 K/mm3 (150-450); Red Blood Count 4.26 M/mm3 (4.1-5.4); Red Cell Distribution Width 13.3 % (11.5-14.0); White Blood Count 8.6 K/mm3 (4.0-10.5)
[2020-03-23 04:20] LABS: ALBUMIN 4.8 g/dL (3.5-5.0); ALKALINE PHOSPHATASE 81 U/L (38-126); ANION GAP 16.2 MEQ/L (5-15); BLOOD UREA NITROGEN 13 mg/dL (7-17); CHLORIDE 108 mmol/L (98-107); Calcium 9.8 mg/dL (8.4-10.2); Carbon Dioxide 19 mmol/L (22-30); Creatinine 1 0.92 mg/dL (0.52-1.04); Glucose 98 mg/dL (74-106); Potassium 3.9 mmol/L (3.5-5.1); SGOT/AST 30 U/L (14-36); SGPT/ALT 21 U/L (0-35); SODIUM 140 mmol/L (137-145)
[2020-03-23] MEDS ORDERED: TRANEXAMIC ACID 1000 MG/10 ML ONE (04:52)
[2020-03-23 04:53] LABS: Appearance SLIGHTLY CLOUDY (CLEAR); Bilirubin NEGATIVE (NEGATIVE); Blood NEGATIVE Ery/ul (0-5); Epithelial Cells RARE /HPF (FEW); Glucose NEGATIVE (NEGATIVE); Hyaline Casts 0-2 /LPF (0-2); Ketones SMALL (NEGATIVE); Leukocyte Esterase NEGATIVE (NEGATIVE); Mucus SLIGHT /HPF (NEGATIVE); Nitrite NEGATIVE (NEGATIVE); Protein,Urine Dip 30 (Negative); Specific Gravity 1.031 (1.005-1.025); Urobilinogen 2 mg/dL (0-1); WBC 0-2 /HPF (0-5)
[2020-03-23 04:54] LABS: Bacteria NONE SEEN /HPF (NEGATIVE)
[2020-03-23] MEDS ORDERED: Zofran 4 MG/2 ML VIAL ONE ×2 (06:04→06:30)
[2020-03-23] MEDS ORDERED: Zofran 4 MG/2 ML VIAL IV ONE ×2 (06:05→06:30)
[2020-03-23 06:06] VITALS: O2SAT 99
[2020-03-23] MEDS ORDERED: Activase 100 MG IV STA (06:15)
[2020-03-23] MEDS ORDERED: Pepcid 20 MG VIAL IV ONE ×2 (06:30)
[2020-03-23 07:07] VITALS: BP 130/87; PULSE 63
--- NOTE | 2020-03-23 09:14 | XRAY ---
Indication: Acute mental status change. Slurred speech. Stroke. Multiple contiguous axial images obtained through the head without contrast. Comparison: None Normal appearing brain parenchyma, ventricles, and bony calvarium. Moderate mucosal thickening of both ethmoid sinuses. Remaining visualized paranasal sinuses and mastoid air cells are clear. Impression: Paranasal sinus disease. Remaining CT head without contrast exam is negative. Follow-up CT or MRI may yield further information if there remains clinical concern. Comment: Preliminary interpretation was made by [facility]. No critical discrepancy.
--- NOTE | 2020-03-23 09:18 | XRAY ---
Indication: Left-sided weakness, acute mental status change, and slurred speech. TPA therapy. Conventional contrast enhanced CTA neck was performed using 80 cc Isovue 370 contrast. Two-dimensional sagittal and coronal reformatted images obtained. Additional 3-dimensional reformatted images obtained using a separate workstation. Comparison: None Visualized aortic arch is normal in course and caliber with patent branching right brachiocephalic, left common carotid, and left subclavian arteries. Examination of the right carotid circulation demonstrates normal CTA appearance to the common carotid, carotid bulb, internal carotid, and external carotid arteries. Examination of the left carotid circulation demonstrates normal CTA appearance to the common carotid, carotid bulb, internal carotid, and external carotid arteries. Vertebral arteries are bilaterally symmetric and also normal in CTA appearance. Visualized soft tissues demonstrates scattered small centimeter/subcentimeter cervical lymph nodes bilaterally. Thyroid gland enhances homogeneously. Supra and infraglottic airway widely patent. Lung apices are clear. Visualized cervical thoracic spine intact with minimal multilevel endplate spurring. CT head and CTA head reported separately. Impression: Normal CTA neck with contrast exam.
--- NOTE | 2020-03-23 09:22 | XRAY ---
Indication: Left-sided weakness, acute mental status change, and slurred speech. TPA therapy. Conventional contrast enhanced CTA head was performed using 80 cc Isovue 370 contrast. Two-dimensional sagittal and coronal reformatted images obtained. Additional 3-dimensional reformatted images obtained using a separate workstation. Comparison: None CTA neck reported separately. Distal internal carotid arteries are bilaterally symmetric without arteriosclerotic disease, critical stenosis, obstruction, or AV malformation. Normal carotid terminus with normal branching A1 and M1 segments bilaterally. More distal anterior cerebral, middle cerebral, anterior communicating, and posterior communicating arteries are normal in CTA appearance. Posterior circulation demonstrates normal CTA appearance to the basilar artery with normal branching posterior cerebral, superior cerebellar, and anterior inferior cerebral arteries. Venous system unremarkable. No abnormal enhancing intra or extra-axial mass. Impression: Normal CTA brain with contrast exam.
--- NOTE | 2020-03-23 09:24 | XRAY ---
Indication: Chest pain, slurred speech, and acute mental status change. Comparison: September 17, 2013. Portable chest demonstrates normal heart and lungs. Bony thorax intact. No new/acute findings.
== END 2020-03-23 07:20 | disposition short-term general hospital (02) ==
LOC: ED 03:40
DX: I63.9 Cerebral infarction, unspecified (principal)
CPT/HCPCS: 36000; 36415; 51702; 70450; 70496; 70498; 71045; 80053; 81001; 82962; 84484; 84703; 85025; 85379; 85610; 87086; 93005; 93041; 94760; 96374; 96375; 96376; 99285; 99291; Q3014; J2405; J2997

== ENCOUNTER 2022-06-10 08:22 | Observation (INO) | payer OTHER ==
--- NOTE | 2022-06-10 08:43 | XRAY ---
Indication: Headache and slurred speech. Stroke. Multiple contiguous axial images obtained through the head without contrast. Comparison: March 23, 2020 Normal appearing brain parenchyma, ventricles, and bony calvarium. Visualized paranasal sinuses and mastoid air cells are clear. Impression: Continued normal CT head without contrast exam.
[2022-06-10 08:48] LABS: Absolute Neutrophil Ct (ANC) 4.82 x10^3/uL (1.4-6.9); Basophil (Absolute #) 0.04 x10^3/uL (0-0.4); Eosinophil % 3.1 % (0.00-5.0); Eosinophil (Absolute #) 0.22 x10^3/uL (0-0.5); Hematocrit 37.9 % (35-47); Hemoglobin 11.5 g/dL (12.0-16.0); Lymphocyte (Absolute #) 1.68 x10^3/uL (1.0-4.6); Lymphocytes % 23.5 % (24.0-44.0); Mean Cell Volume 83.5 fL (78-100); Mean Corpuscular Hemoglobin 25.3 pg (26-32); Mean Corpuscular Hgb Concent. 30.3 g/dL (32-36); Mean Platelet Volume 10.5 fL (7.5-11.0); Monocyte (Absolute #) 0.35 x10^3/uL (0.0-1.3); Monocytes % 4.9 % (0.0-12.0); Neutrophil % 67.5 % (36.0-66.0); Platelet Count 207 x10^3/uL (150-450); Red Blood Count 4.54 x10^6/uL (4.1-5.4); Red Cell Distribution Width 15.3 % (11.5-14.0); White Blood Count 7.1 x10^3/uL (4.0-10.5)
--- NOTE | 2022-06-10 09:18 | ERPHSYRPT ---
- History of Present Illness Source: patient, EMS Exam Limitations: clinical condition Patient Subjective Stated Complaint: weakness/slurred speech Triage Nursing Assessment: Patient brought into ED per EMS and immediately taken per stretcher to CT. 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 This nurse spoke to patient's boss and she stated patient comes in to work at 0600 and was seen by press department manager and was talking but noticed a droop to the left side of her face. Patient's boss stated she came into work at 0800 and noticed patient hanging out to nurses station crying and panicked and unable to talk with right sided facial droopness. Upon assessment patient unable to speak, but is trying. When asked questions she is able to say yes or no. Patient complains of headache 04/03. 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 Pt oriented to name only upon arrival w symmetric weakness. Stat CT head neg upon arrival. Symptoms rapidly improved w pt becoming oriented x3 w resolved expressive aphasia. After rapid improvement, pt complains of R face "drawing" and some R facial numbness. No obvious facial droop on exam. Neuro consult obtained immediately. Timing/Duration: other (6AM) Severity: moderate Character of Deficits: other (Expressive aphasia) Deficits: weak (Symmetric weakness) Baseline/Normal Cognition: alert oriented x 3 Current Cognition: alert oriented x 3 Baseline Gait: walks w/o assistance Associated Symptoms: confusion, headache Allergies/Adverse Reactions: nickel [Nickel] Allergy (Mild, Verified 06/10/22 08:53) Swelling Home Medications: Metoprolol Succinate 25 mg Xl* [Toprol-Xl 25MG Tablets] 12.5 mg PO BID 06/10/22 [History] Hx Tetanus, Diphtheria Vaccination/Date Given: No Hx Influenza Vaccination/Date Given: No Hx Pneumococcal Vaccination/Date Given: No Immunizations Up to Date: Yes Travel Risk - International Travel Have you traveled outside of the country in past 3 weeks: No - Coronavirus Screening Are you exhibiting any of the following symptoms?: No Close contact with a COVID-19 positive Pt in past 14-21 Days: No - Vaccine Status Have you recieved a Covid-19 vaccination: Yes 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 - Vaccination Dates Date of 2cond Vaccination (if applicable): na - Review of Systems Constitutional: No Symptoms Eyes: No Symptoms Ears, Nose, & Throat: No Symptoms Respiratory: No Symptoms Cardiac: No Symptoms Abdominal/Gastrointestinal: No Symptoms Genitourinary Symptoms: No Symptoms Musculoskeletal: No Symptoms Skin: No Symptoms Neurological: No Symptoms Psychological: No Symptoms Endocrine: No Symptoms Hematologic/Lymphatic: No Symptoms Immunological/Allergic: No Symptoms - Past Medical History Pertinent Past Medical History: No Neurological History: Stroke ENT History: No Pertinent History Cardiac History: No Pertinent History Respiratory History: No Pertinent History Endocrine Medical History: No Pertinent History Musculoskeletal History: No Pertinent History GI Medical History: No Pertinent History History: No Pertinent History Psycho-Social History: No Pertinent History Female Reproductive Disorders: No Pertinent History Other Medical History: stoke 2-3 years ago. TPA'D 2019 - Past Surgical History Past Surgical History: Yes Neuro Surgical History: No Pertinent History Cardiac: No Pertinent History Respiratory: No Pertinent History Gastrointestinal: No Pertinent History Genitourinary: No Pertinent History Musculoskeletal: No Pertinent History Female Surgical History: Section, Tubal Ligation - Social History Smoking Status: Current every day smoker How long have you smoked: yrs Exposure to second hand smoke: No Drug Use: none Patient Lives Alone: No Significant Family History: no pertinent family hx - Female History Hx Last Menstrual Period: last month Hx Now: No - Nursing Vital Signs Nursing Vital Signs: Initial Vital Signs Temperature 97.5 F 06/10/22 08:28 Pulse Rate 62 06/10/22 08:28 Respiratory Rate 18 06/10/22 08:28 Blood Pressure 164/88 06/10/22 08:28 O2 Sat by Pulse Oximetry 100 06/10/22 08:28 Pain Scale Pain Intensity 8 Hypertensive - [place] Coma Scale Best Eye Response ([place]): (4) open spontaneously Best Verbal Response ([place]): (4) confused conversation Best Motor Response ([place]): (6) obeys commands [place] Total: 14 - Physical Exam General Appearance: no apparent distress, anxiety Eye Exam: bilateral eye: normal inspection, PERRL, EOMI, other (B horizontal nystagmus) Ears, Nose, Throat Exam: normal ENT inspection, TMs normal, pharynx normal, moist mucous membranes Neck Exam: normal inspection, non-tender, supple, full range of motion, No meningismus, No mass, No Brudzinski, No Kernig's, No carotid bruit Respiratory: normal breath sounds, lungs clear, airway intact, No respiratory distress Cardiovascular: regular rate/rhythm, normal heart sounds, normal peripheral pulses, capillary refill <2 sec, No murmur Gastrointestinal: soft, normal bowel sounds, No tenderness Back Exam: normal inspection, normal range of motion, No CVA tenderness, No vertebral tenderness Extremity Exam: normal inspection, normal range of motion Peripheral Pulses: carotid (R): 2+, carotid (L): 2+ Mental Status: alert, disoriented to place, 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 Exam: normal hearing, PERRL, No normal speech Motor/Sensory: no motor deficit, no sensory deficit, no pronator drift, negative Babinski's sign DTR: bicep (R): 2+, bicep (L): 2+ Skin Exam: normal color, warm, dry, No rash SpO2 Interpretation: normal SpO2: 100 O2 Delivery: Room Air - Course Nursing assessment & vital signs reviewed: Yes EKG Interpreted by Me: RATE (Borderline [place]/Rate 59/Incomplete RBBB/Low voltage/No acute ST segment changes) - CT Exams Head CT Interpretation: Discussed w/radiologist (Ct head neg per Rad) Ordered Tests: Active Orders 24 hr Category Date Time Status EKG-ER Only STAT Care 06/10/22 08:35 Completed NPO (ED) STAT Care 06/10/22 08:35 Completed Tele-Health Consult ROUTINE Cons 06/10/22 09:01 Completed HEAD WITHOUT CONTRAST [CT] Stat Exams 06/10/22 08:23 Completed CBC W DIFF AM.LAB Lab 06/11/22 04:00 Ordered CBC W DIFF Stat Lab 06/10/22 08:39 Completed CMP AM.LAB Lab 06/11/22 04:00 Ordered CMP Stat Lab 06/10/22 08:39 Completed ETHYL ALCOHOL Stat Lab 06/10/22 08:39 Completed PROTIME WITH INR Stat Lab 06/10/22 08:39 Completed PTT Stat Lab 06/10/22 08:39 Completed UA W/RFX CULTURE Stat Lab 06/10/22 09:30 Completed Urine Triage Profile Stat Lab 06/10/22 09:30 Completed Transfer Order Routine Transfer 06/10/22 Completed Medication Summary Generic Name Dose Route Start Last Admin Trade Name Freq PRN Reason Stop Dose Admin Enoxaparin Sodium 40 mg 06/10/22 13:00 06/10/22 15:37 Enoxaparin Sodium 40 Mg/0.4 Ml Syringe SQ 07/10/22 12:59 40 mg DAILY MING Administration Metoprolol Succinate 12.5 mg 06/11/22 05:00 Metoprolol Succinate 25 Mg Xl Tab PO 07/11/22 04:59 0500,1300 MING Ondansetron HCl 4 mg 06/10/22 11:16 Ondansetron Hcl 4 Mg/2 Ml Vial IV 07/10/22 11:15 Q6H PRN PRN NAUSEA/VOMITING Lab/Rad Data: Laboratory Result Diagrams 06/10/22 08:39 06/10/22 08:39 Laboratory Results 06/10/22 06/10/22 06/10/22 Range/Units 09:30 09:30 09:26 WBC (4.0-10.5) x10^3/uL RBC (4.1-5.4) x10^6/uL Hgb (12.0-16.0) g/dL Hct (35-47) % MCV (78-100) fL MCH (26-32) pg MCHC (32-36) g/dL RDW (11.5-14.0) % Plt Count (150-450) x10^3/uL MPV (7.5-11.0) fL Gran % (36.0-66.0) % Immature Gran % (Auto) (0.00-0.4) % Nucleat RBC Rel Count (0.00-0.1) % Eos # (Auto) (0-0.5) x10^3/uL Immature Gran # (Auto) (0.00-0.03) x10^3u/L Absolute Lymphs (auto) (1.0-4.6) x10^3/uL Absolute Monos (auto) (0.0-1.3) x10^3/uL Absolute Nucleated RBC (0.00-0.01) x10^3u/L Lymphocytes % (24.0-44.0) % Monocytes % (0.0-12.0) % Eosinophils % (0.00-5.0) % Basophils % (0.0-0.4) % Absolute Granulocytes (1.4-6.9) x10^3/uL Basophils # (0-0.4) x10^3/uL PT (9.4-12.5) SECONDS INR (0.8-3.0) APTT (25.1-36.5) SECONDS Sodium (137-145) mmol/L Potassium (3.5-5.1) mmol/L Chloride (98-107) mmol/L Carbon Dioxide (22-30) mmol/L Anion Gap (5-15) MEQ/L BUN (7-17) mg/dL Creatinine (0.52-1.04) mg/dL Estimated GFR ML/MIN Glucose (74-106) mg/dL Calcium (8.4-10.2) mg/dL Total Bilirubin (0.2-1.3) mg/dL AST (14-36) U/L ALT (0-35) U/L Alkaline Phosphatase (38-126) U/L Serum Total Protein (6.3-8.2) g/dL Albumin (3.5-5.0) g/dL Urinalys Dipstick Clnc MAIN LAB Urine Color YELLOW (YELLOW) Urine Appearance CLEAR (CLEAR) Urine pH 7.0 (5-6) Ur Specific [place] 1.015 (1.005-1.025) POC Urine Protein Conf NEGATIVE (Negative) Urine Ketones NEGATIVE (NEGATIVE) Urine Nitrite NEGATIVE (NEGATIVE) Urine Bilirubin NEGATIVE (NEGATIVE) Urine Urobilinogen 0.2 (0-1) mg/dL Urine Leukocytes NEGATIVE (NEGATIVE) Urine WBC (Auto) NONE (0-5) /HPF Urine RBC (Auto) NONE (0-2) /HPF U Epithel Cells (Auto) RARE (FEW) /HPF Urine Bacteria (Auto) NONE (NEGATIVE) /HPF Urine RBC NEGATIVE (0-5) Josh/ul Urine Mucus (Auto) SLIGHT (NEGATIVE) /HPF Ur Culture Indicated? NO Urine Glucose NEGATIVE (NEGATIVE) mg/dL Urine Opiates Level NEGATIVE (NEGATIVE) Ur Methadone NEGATIVE (NEGATIVE) Urine Barbiturates NEGATIVE (NEGATIVE) Ur Phencyclidine (PCP) NEGATIVE (NEGATIVE) Urine Amphetamine NEGATIVE (NEGATIVE) U Benzodiazepine Level NEGATIVE (NEGATIVE) Urine Cocaine NEGATIVE (NEGATIVE) Urine Marijuana (THC) NEGATIVE (NEGATIVE) Ethyl Alcohol (0-10) mg/dL Influenza Type A Ag NEGATIVE (NEGATIVE) Influenza Type B Ag NEGATIVE (NEGATIVE) RSV (PCR) NEGATIVE (Negative) SARS-CoV-2 (PCR) NEGATIVE (NEGATIVE) 06/10/22 06/10/22 06/10/22 Range/Units 08:39 08:39 08:39 WBC (4.0-10.5) x10^3/uL RBC (4.1-5.4) x10^6/uL Hgb (12.0-16.0) g/dL Hct (35-47) % MCV (78-100) fL MCH (26-32) pg MCHC (32-36) g/dL RDW (11.5-14.0) % Plt Count (150-450) x10^3/uL MPV (7.5-11.0) fL Gran % (36.0-66.0) % Immature Gran % (Auto) (0.00-0.4) % Nucleat RBC Rel Count (0.00-0.1) % Eos # (Auto) (0-0.5) x10^3/uL Immature Gran # (Auto) (0.00-0.03) x10^3u/L Absolute Lymphs (auto) (1.0-4.6) x10^3/uL Absolute Monos (auto) (0.0-1.3) x10^3/uL Absolute Nucleated RBC (0.00-0.01) x10^3u/L Lymphocytes % (24.0-44.0) % Monocytes % (0.0-12.0) % Eosinophils % (0.00-5.0) % Basophils % (0.0-0.4) % Absolute Granulocytes (1.4-6.9) x10^3/uL Basophils # (0-0.4) x10^3/uL PT 9.9 (9.4-12.5) SECONDS INR 0.93 (0.8-3.0) APTT 25.7 (25.1-36.5) SECONDS Sodium 137 (137-145) mmol/L Potassium 4.2 (3.5-5.1) mmol/L Chloride 109 H (98-107) mmol/L Carbon Dioxide 20 L (22-30) mmol/L Anion Gap 11.8 (5-15) MEQ/L BUN 12 (7-17) mg/dL Creatinine 0.80 (0.52-1.04) mg/dL Estimated GFR > 60.0 ML/MIN Glucose 104 (74-106) mg/dL Calcium 9.0 (8.4-10.2) mg/dL Total Bilirubin 0.20 (0.2-1.3) mg/dL AST 27 (14-36) U/L ALT 25 (0-35) U/L Alkaline Phosphatase 70 (38-126) U/L Serum Total Protein 7.6 (6.3-8.2) g/dL Albumin 4.4 (3.5-5.0) g/dL Urinalys Dipstick Clnc Urine Color (YELLOW) Urine Appearance (CLEAR) Urine pH (5-6) Ur Specific [place] (1.005-1.025) POC Urine Protein Conf (Negative) Urine Ketones (NEGATIVE) Urine Nitrite (NEGATIVE) Urine Bilirubin (NEGATIVE) Urine Urobilinogen (0-1) mg/dL Urine Leukocytes (NEGATIVE) Urine WBC (Auto) (0-5) /HPF Urine RBC (Auto) (0-2) /HPF U Epithel Cells (Auto) (FEW) /HPF Urine Bacteria (Auto) (NEGATIVE) /HPF Urine RBC (0-5) Josh/ul Urine Mucus (Auto) (NEGATIVE) /HPF Ur Culture Indicated? Urine Glucose (NEGATIVE) mg/dL Urine Opiates Level (NEGATIVE) Ur Methadone (NEGATIVE) Urine Barbiturates (NEGATIVE) Ur Phencyclidine (PCP) (NEGATIVE) Urine Amphetamine (NEGATIVE) U Benzodiazepine Level (NEGATIVE) Urine Cocaine (NEGATIVE) Urine Marijuana (THC) (NEGATIVE) Ethyl Alcohol < 10 (0-10) mg/dL Influenza Type A Ag (NEGATIVE) Influenza Type B Ag (NEGATIVE) RSV (PCR) (Negative) SARS-CoV-2 (PCR) (NEGATIVE) 06/10/22 Range/Units 08:39 WBC 7.1 (4.0-10.5) x10^3/uL RBC 4.54 (4.1-5.4) x10^6/uL Hgb 11.5 L (12.0-16.0) g/dL Hct 37.9 (35-47) % MCV 83.5 (78-100) fL MCH 25.3 L (26-32) pg MCHC 30.3 L (32-36) g/dL RDW 15.3 H (11.5-14.0) % Plt Count 207 (150-450) x10^3/uL MPV 10.5 (7.5-11.0) fL Gran % 67.5 H (36.0-66.0) % Immature Gran % (Auto) 0.4 (0.00-0.4) % Nucleat RBC Rel Count 0.0 (0.00-0.1) % Eos # (Auto) 0.22 (0-0.5) x10^3/uL Immature Gran # (Auto) 0.03 (0.00-0.03) x10^3u/L Absolute Lymphs (auto) 1.68 (1.0-4.6) x10^3/uL Absolute Monos (auto) 0.35 (0.0-1.3) x10^3/uL Absolute Nucleated RBC 0.00 (0.00-0.01) x10^3u/L Lymphocytes % 23.5 L (24.0-44.0) % Monocytes % 4.9 (0.0-12.0) % Eosinophils % 3.1 (0.00-5.0) % Basophils % 0.6 (0.0-0.4) % Absolute Granulocytes 4.82 (1.4-6.9) x10^3/uL Basophils # 0.04 (0-0.4) x10^3/uL PT (9.4-12.5) SECONDS INR (0.8-3.0) APTT (25.1-36.5) SECONDS Sodium (137-145) mmol/L Potassium (3.5-5.1) mmol/L Chloride (98-107) mmol/L Carbon Dioxide (22-30) mmol/L Anion Gap (5-15) MEQ/L BUN (7-17) mg/dL Creatinine (0.52-1.04) mg/dL Estimated GFR ML/MIN Glucose (74-106) mg/dL Calcium (8.4-10.2) mg/dL Total Bilirubin (0.2-1.3) mg/dL AST (14-36) U/L ALT (0-35) U/L Alkaline Phosphatase (38-126) U/L Serum Total Protein (6.3-8.2) g/dL Albumin (3.5-5.0) g/dL Urinalys Dipstick Clnc Urine Color (YELLOW) Urine Appearance (CLEAR) Urine pH (5-6) Ur Specific [place] (1.005-1.025) POC Urine Protein Conf (Negative) Urine Ketones (NEGATIVE) Urine Nitrite (NEGATIVE) Urine Bilirubin (NEGATIVE) Urine Urobilinogen (0-1) mg/dL Urine Leukocytes (NEGATIVE) Urine WBC (Auto) (0-5) /HPF Urine RBC (Auto) (0-2) /HPF U Epithel Cells (Auto) (FEW) /HPF Urine Bacteria (Auto) (NEGATIVE) /HPF Urine RBC (0-5) Josh/ul Urine Mucus (Auto) (NEGATIVE) /HPF Ur Culture Indicated? Urine Glucose (NEGATIVE) mg/dL Urine Opiates Level (NEGATIVE) Ur Methadone (NEGATIVE) Urine Barbiturates (NEGATIVE) Ur Phencyclidine (PCP) (NEGATIVE) Urine Amphetamine (NEGATIVE) U Benzodiazepine Level (NEGATIVE) Urine Cocaine (NEGATIVE) Urine Marijuana (THC) (NEGATIVE) Ethyl Alcohol (0-10) mg/dL Influenza Type A Ag (NEGATIVE) Influenza Type B Ag (NEGATIVE) RSV (PCR) (Negative) SARS-CoV-2 (PCR) (NEGATIVE) - Progress Progress: improved Progress Note: 06/10/22 10:17 Stat neuro consult-No tPA/No CTA of head-neck/Wants MRI-MRA Pt symptoms rapidly improving Pt wo focal weakness during entire stay 06/10/22 11:20 Pt initially ok w MRI of brain w sedation, but later refused due to anxiety. Admit per Dr. Woodward for CT/CTA of head-neck in 24 hours per Neuro consult 06/10/22 11:35 06/10/22 23:03 Discussed with : Christos Counseled pt/family regarding: lab results, diagnosis, need for follow-up, rad results - Departure Departure Disposition: Observation Clinical Impression: TIA (transient ischemic attack) Condition: Stable Critical Care Time: Yes Critical Care Time(excluding separately billable procedures): Critical 30-74 mins
[2022-06-10 09:27] LABS: ALBUMIN 4.4 g/dL (3.5-5.0); ALKALINE PHOSPHATASE 70 U/L (38-126); ANION GAP 11.8 MEQ/L (5-15); BLOOD UREA NITROGEN 12 mg/dL (7-17); CHLORIDE 109 mmol/L (98-107); Carbon Dioxide 20 mmol/L (22-30); EST GLOMERULAR FILTRATION RATE > 60.0 ML/MIN; Glucose 104 mg/dL (74-106); Potassium 4.2 mmol/L (3.5-5.1); SGOT/AST 27 U/L (14-36); SGPT/ALT 25 U/L (0-35); SODIUM 137 mmol/L (137-145); Total Protein 7.6 g/dL (6.3-8.2)
[2022-06-10 09:29] LABS: INR 0.93 (0.8-3.0); PROTIME 9.9 SECONDS (9.4-12.5); PTT 25.7 SECONDS (25.1-36.5)
[2022-06-10 09:56] LABS: Appearance CLEAR (CLEAR); Bilirubin NEGATIVE (NEGATIVE); Dipstick done @ ? MAIN LAB; Epithelial Cells RARE /HPF (FEW); Glucose NEGATIVE (NEGATIVE); Ketones NEGATIVE (NEGATIVE); Mucus SLIGHT /HPF (NEGATIVE); Nitrite NEGATIVE (NEGATIVE); Protein,Urine Dip NEGATIVE (Negative); RBC NEGATIVE Ery/ul (0-5); Specific Gravity 1.015 (1.005-1.025); Urobilinogen 0.2 mg/dL (0-1)
[2022-06-10 09:57] LABS: Urine Cultured Indicated? NO
[2022-06-10 10:11] LABS: Amphetamine,Urine NEGATIVE (NEGATIVE); Barbiturate,Urine NEGATIVE (NEGATIVE); Benzodiazepine,Urine NEGATIVE (NEGATIVE); Cocaine,Urine NEGATIVE (NEGATIVE); Methadone,Urine NEGATIVE (NEGATIVE); Opiate,Urine NEGATIVE (NEGATIVE); PCP,Urine NEGATIVE (NEGATIVE); THC,Urine NEGATIVE (NEGATIVE)
[2022-06-10 10:31] LABS: INFLUENZA A NEGATIVE (NEGATIVE); INFLUENZA B NEGATIVE (NEGATIVE); RESPIRATORY SYNCTIAL VIRUS NEGATIVE (Negative); SARS-CoV-2 Xpert Express NEGATIVE (NEGATIVE)
[2022-06-10] MEDS ORDERED: Zofran 4 MG/2 ML VIAL IV PRN (11:16)
[2022-06-10] MEDS ORDERED: ENOXAPARIN SODIUM SQ SCH (13:00)
[2022-06-11] MEDS ORDERED: Toprol-Xl 25MG Tablets PO SCH (05:00)
[2022-06-11 05:14] LABS: Absolute Neutrophil Ct (ANC) 4.54 x10^3/uL (1.4-6.9); Basophil (Absolute #) 0.03 x10^3/uL (0-0.4); Eosinophil % 3.9 % (0.00-5.0); Eosinophil (Absolute #) 0.28 x10^3/uL (0-0.5); Hematocrit 36.6 % (35-47); Hemoglobin 11.1 g/dL (12.0-16.0); Lymphocyte (Absolute #) 1.78 x10^3/uL (1.0-4.6); Lymphocytes % 25.1 % (24.0-44.0); Mean Cell Volume 82.2 fL (78-100); Mean Corpuscular Hemoglobin 24.9 pg (26-32); Mean Corpuscular Hgb Concent. 30.3 g/dL (32-36); Monocyte (Absolute #) 0.44 x10^3/uL (0.0-1.3); Monocytes % 6.2 % (0.0-12.0); Neutrophil % 64.1 % (36.0-66.0); Platelet Count 215 x10^3/uL (150-450); Red Blood Count 4.45 x10^6/uL (4.1-5.4); Red Cell Distribution Width 15.4 % (11.5-14.0); White Blood Count 7.1 x10^3/uL (4.0-10.5)
[2022-06-11 05:34] LABS: ALBUMIN 4.1 g/dL (3.5-5.0); ALKALINE PHOSPHATASE 65 U/L (38-126); BLOOD UREA NITROGEN 11 mg/dL (7-17); CHLORIDE 108 mmol/L (98-107); Calcium 8.7 mg/dL (8.4-10.2); Carbon Dioxide 23 mmol/L (22-30); Creatinine 1 0.76 mg/dL (0.52-1.04); EST GLOMERULAR FILTRATION RATE > 60.0 ML/MIN; Glucose 94 mg/dL (74-106); SGOT/AST 23 U/L (14-36); SGPT/ALT 23 U/L (0-35); SODIUM 137 mmol/L (137-145); Total Protein 7.3 g/dL (6.3-8.2)
[2022-06-11] MEDS ORDERED: LIPITOR 40MG PO STA (08:40)
--- NOTE | 2022-06-11 08:52 | PCM.SSS ---
History of Present Illness - Chief Complaint Chief Complaint: TIA History of Present Illness: is a 41 year old female pt of [employer] who was admitted through ER with TIA. She went to work yesterday at 6 am, her face felt like it was "pulling" and a coworker noticed her lip pulling but pt felt ok so continued passing meds. After she finished she did not feel right, walked down the [place] and felt bad so called her . She had poor balance at that point, was "bouncing back and forth in the hallway" and felt like a deflated balloon. She couldn't talk and couldn't move. She was crying, which she said happens before she has one of these episodes. She had slight GRANT 2/10 initially, then afterward headache was 10/10, then to 6-7/10 later on. She also had a similar episode on Friday(4d ago) at home. She had a bad GRANT on superior L head with slurred speecha nd crying, lasting 5-10 min, then she wanted to sleep. She was treated in 2019 (03/23/20) at [facility] with TPA for likely CVA (we do have copy of MRI which was neg for acute stroke). She told me she has been taking a full aspirin daily and has not been on plavix. She was supposed to f/u with neurology but had no insurance at the time so did not. CT head in ER was negative. Teleneurology advised 81mg asa daily. Lovenox here; swallow study. MRI today, but pt refuses, so CTA head/neck today. TSH, a1c, lipid panel. - Review of Systems Constitutional: Fatigue Respiratory: Short Of Breath Cardiac: Edema (UE and LE prior to an episode) Neurological: Focal Weakness, Headache, Parasthesia, Sensory Changes, Speech Changes Psychological: Anxiety (always) All Other Systems: Reviewed and Negative Medications & Allergies Home Medications: Home Medication List Metoprolol Succinate 25 mg Xl* [Toprol-Xl 25MG Tablets] 12.5 mg PO BID 06/10/22 [History Confirmed 06/10/22] Allergies/Adverse Reactions: Allergies Allergy/AdvReac Type Severity Reaction Status Date / Time nickel [Nickel] Allergy Mild Swelling Verified 06/10/22 08:53 - Past Medical History Past Medical History: No Neurological History: Stroke ENT History: No Pertinent History Cardiac History: No Pertinent History Respiratory History: No Pertinent History Endocrine Medical History: No Pertinent History Musculoskelatal History: No Pertinent History GI Medical History: No Pertinent History History: No Pertinent History Pyscho-Social History: No Pertinent History Reproductive Disorders: No Pertinent History Comment: [place] 2-3 years ago. TPA'D 2019 - Female History Hx Last Menstrual Period: last month Are you now?: No - Past Surgical History Past Surgical History: Yes Neuro Surgical History: No Pertinent History Cardiac History: No Pertinent History Respiratory Surgery: No Pertinent History GI Surgical History: No Pertinent History Genitourinary Surgical Hx: No Pertinent History Musculskeletal Surgical Hx: No Pertinent History Female Surgical History: Section, Tubal Ligation - Social History Smoking Status: Current every day smoker How long have you smoked: yrs Exposure to second hand smoke: No Alcohol: None Drug Use: none Significant Family History: no pertinent family hx - Physical Exam Vital Signs: Vital Signs - 24 hr Temp Pulse Resp BP Pulse Ox 06/11/22 07:24 97.9 F 60 16 154/73 98 06/11/22 04:00 97.9 F 73 17 121/79 96 06/10/22 23:39 97.0 F 66 16 133/63 97 06/10/22 23:04 100 06/10/22 19:01 98.7 F 74 16 138/78 98 06/10/22 16:00 98.4 F 70 18 132/74 100 06/10/22 12:56 97.7 F 56 L 18 162/94 100 06/10/22 10:17 68 18 144/78 98 06/10/22 09:29 60 18 170/96 97 General Appearance: no apparent distress, obese Neurologic Exam: oriented x 3, cooperative, other (CN III-XII intact bilat. Stonecutter Hand 5/5 bilat.) Eye Exam: eyes nml inspection Ears, Nose, Throat Exam: moist mucous membranes Neck Exam: normal inspection, non-tender, supple, No subcutaneous emphysema, No thyromegaly Respiratory Exam: normal breath sounds, lungs clear, No crackles/rales, No rhonchi, No wheezing Cardiovascular Exam: regular rate/rhythm, normal heart sounds, No murmur Gastrointestinal/Abdomen Exam: soft, normal bowel sounds, No tenderness, No distention, No mass, No guarding, No rebound Back Exam: normal inspection, No CVA tenderness, No rash Extremity Exam: normal inspection, No pedal edema, No swelling Skin Exam: normal color, warm, dry, No rash Results - Labs Lab/Micro Results: Lab Results-Last 24 Hours 06/10/22 06/10/22 06/10/22 Range/Units 08:39 08:39 08:39 WBC 7.1 (4.0-10.5) x10^3/uL RBC 4.54 (4.1-5.4) x10^6/uL Hgb 11.5 L (12.0-16.0) g/dL Hct 37.9 (35-47) % MCV 83.5 (78-100) fL MCH 25.3 L (26-32) pg MCHC 30.3 L (32-36) g/dL RDW 15.3 H (11.5-14.0) % Plt Count 207 (150-450) x10^3/uL MPV 10.5 (7.5-11.0) fL Gran % 67.5 H (36.0-66.0) % Immature Gran % (Auto) 0.4 (0.00-0.4) % Nucleat RBC Rel Count 0.0 (0.00-0.1) % Eos # (Auto) 0.22 (0-0.5) x10^3/uL Immature Gran # (Auto) 0.03 (0.00-0.03) x10^3u/L Absolute Lymphs (auto) 1.68 (1.0-4.6) x10^3/uL Absolute Monos (auto) 0.35 (0.0-1.3) x10^3/uL Absolute Nucleated RBC 0.00 (0.00-0.01) x10^3u/L Lymphocytes % 23.5 L (24.0-44.0) % Monocytes % 4.9 (0.0-12.0) % Eosinophils % 3.1 (0.00-5.0) % Basophils % 0.6 (0.0-0.4) % Absolute Granulocytes 4.82 (1.4-6.9) x10^3/uL Basophils # 0.04 (0-0.4) x10^3/uL PT 9.9 (9.4-12.5) SECONDS INR 0.93 (0.8-3.0) APTT 25.7 (25.1-36.5) SECONDS Sodium 137 (137-145) mmol/L Potassium 4.2 (3.5-5.1) mmol/L Chloride 109 H (98-107) mmol/L Carbon Dioxide 20 L (22-30) mmol/L Anion Gap 11.8 (5-15) MEQ/L BUN 12 (7-17) mg/dL Creatinine 0.80 (0.52-1.04) mg/dL Estimated GFR > 60.0 ML/MIN Glucose 104 (74-106) mg/dL Calcium 9.0 (8.4-10.2) mg/dL Total Bilirubin 0.20 (0.2-1.3) mg/dL AST 27 (14-36) U/L ALT 25 (0-35) U/L Alkaline Phosphatase 70 (38-126) U/L Serum Total Protein 7.6 (6.3-8.2) g/dL Albumin 4.4 (3.5-5.0) g/dL Urinalys Dipstick Clnc Urine Color (YELLOW) Urine Appearance (CLEAR) Urine pH (5-6) Ur Specific Freeman (1.005-1.025) POC Urine Protein Conf (Negative) Urine Ketones (NEGATIVE) Urine Nitrite (NEGATIVE) Urine Bilirubin (NEGATIVE) Urine Urobilinogen (0-1) mg/dL Urine Leukocytes (NEGATIVE) Urine WBC (Auto) (0-5) /HPF Urine RBC (Auto) (0-2) /HPF U Epithel Cells (Auto) (FEW) /HPF Urine Bacteria (Auto) (NEGATIVE) /HPF Urine RBC (0-5) Josh/ul Urine Mucus (Auto) (NEGATIVE) /HPF Ur Culture Indicated? Urine Glucose (NEGATIVE) mg/dL Urine Opiates Level (NEGATIVE) Ur Methadone (NEGATIVE) Urine Barbiturates (NEGATIVE) Ur Phencyclidine (PCP) (NEGATIVE) Urine Amphetamine (NEGATIVE) U Benzodiazepine Level (NEGATIVE) Urine Cocaine (NEGATIVE) Urine Marijuana (THC) (NEGATIVE) Ethyl Alcohol (0-10) mg/dL Influenza Type A Ag (NEGATIVE) Influenza Type B Ag (NEGATIVE) RSV (PCR) (Negative) SARS-CoV-2 (PCR) (NEGATIVE) 06/10/22 06/10/22 06/10/22 Range/Units 08:39 09:26 09:30 WBC (4.0-10.5) x10^3/uL RBC (4.1-5.4) x10^6/uL Hgb (12.0-16.0) g/dL Hct (35-47) % MCV (78-100) fL MCH (26-32) pg MCHC (32-36) g/dL RDW (11.5-14.0) % Plt Count (150-450) x10^3/uL MPV (7.5-11.0) fL Gran % (36.0-66.0) % Immature Gran % (Auto) (0.00-0.4) % Nucleat RBC Rel Count (0.00-0.1) % Eos # (Auto) (0-0.5) x10^3/uL Immature Gran # (Auto) (0.00-0.03) x10^3u/L Absolute Lymphs (auto) (1.0-4.6) x10^3/uL Absolute Monos (auto) (0.0-1.3) x10^3/uL Absolute Nucleated RBC (0.00-0.01) x10^3u/L Lymphocytes % (24.0-44.0) % Monocytes % (0.0-12.0) % Eosinophils % (0.00-5.0) % Basophils % (0.0-0.4) % Absolute Granulocytes (1.4-6.9) x10^3/uL Basophils # (0-0.4) x10^3/uL PT (9.4-12.5) SECONDS INR (0.8-3.0) APTT (25.1-36.5) SECONDS Sodium (137-145) mmol/L Potassium (3.5-5.1) mmol/L Chloride (98-107) mmol/L Carbon Dioxide (22-30) mmol/L Anion Gap (5-15) MEQ/L BUN (7-17) mg/dL Creatinine (0.52-1.04) mg/dL Estimated GFR ML/MIN Glucose (74-106) mg/dL Calcium (8.4-10.2) mg/dL Total Bilirubin (0.2-1.3) mg/dL AST (14-36) U/L ALT (0-35) U/L Alkaline Phosphatase (38-126) U/L Serum Total Protein (6.3-8.2) g/dL Albumin (3.5-5.0) g/dL Urinalys Dipstick Clnc MAIN LAB Urine Color YELLOW (YELLOW) Urine Appearance CLEAR (CLEAR) Urine pH 7.0 (5-6) Ur Specific Freeman 1.015 (1.005-1.025) POC Urine Protein Conf NEGATIVE (Negative) Urine Ketones NEGATIVE (NEGATIVE) Urine Nitrite NEGATIVE (NEGATIVE) Urine Bilirubin NEGATIVE (NEGATIVE) Urine Urobilinogen 0.2 (0-1) mg/dL Urine Leukocytes NEGATIVE (NEGATIVE) Urine WBC (Auto) NONE (0-5) /HPF Urine RBC (Auto) NONE (0-2) /HPF U Epithel Cells (Auto) RARE (FEW) /HPF Urine Bacteria (Auto) NONE (NEGATIVE) /HPF Urine RBC NEGATIVE (0-5) Josh/ul Urine Mucus (Auto) SLIGHT (NEGATIVE) /HPF Ur Culture Indicated? NO Urine Glucose NEGATIVE (NEGATIVE) mg/dL Urine Opiates Level (NEGATIVE) Ur Methadone (NEGATIVE) Urine Barbiturates (NEGATIVE) Ur Phencyclidine (PCP) (NEGATIVE) Urine Amphetamine (NEGATIVE) U Benzodiazepine Level (NEGATIVE) Urine Cocaine (NEGATIVE) Urine Marijuana (THC) (NEGATIVE) Ethyl Alcohol < 10 (0-10) mg/dL Influenza Type A Ag NEGATIVE (NEGATIVE) Influenza Type B Ag NEGATIVE (NEGATIVE) RSV (PCR) NEGATIVE (Negative) SARS-CoV-2 (PCR) NEGATIVE (NEGATIVE) 06/10/22 06/11/22 06/11/22 Range/Units 09:30 04:25 04:25 WBC 7.1 (4.0-10.5) x10^3/uL RBC 4.45 (4.1-5.4) x10^6/uL Hgb 11.1 L (12.0-16.0) g/dL Hct 36.6 (35-47) % MCV 82.2 (78-100) fL MCH 24.9 L (26-32) pg MCHC 30.3 L (32-36) g/dL RDW 15.4 H (11.5-14.0) % Plt Count 215 (150-450) x10^3/uL MPV 11.0 (7.5-11.0) fL Gran % 64.1 (36.0-66.0) % Immature Gran % (Auto) 0.3 (0.00-0.4) % Nucleat RBC Rel Count 0.0 (0.00-0.1) % Eos # (Auto) 0.28 (0-0.5) x10^3/uL Immature Gran # (Auto) 0.02 (0.00-0.03) x10^3u/L Absolute Lymphs (auto) 1.78 (1.0-4.6) x10^3/uL Absolute Monos (auto) 0.44 (0.0-1.3) x10^3/uL Absolute Nucleated RBC 0.00 (0.00-0.01) x10^3u/L Lymphocytes % 25.1 (24.0-44.0) % Monocytes % 6.2 (0.0-12.0) % Eosinophils % 3.9 (0.00-5.0) % Basophils % 0.4 (0.0-0.4) % Absolute Granulocytes 4.54 (1.4-6.9) x10^3/uL Basophils # 0.03 (0-0.4) x10^3/uL PT (9.4-12.5) SECONDS INR (0.8-3.0) APTT (25.1-36.5) SECONDS Sodium 137 (137-145) mmol/L Potassium 4.0 (3.5-5.1) mmol/L Chloride 108 H (98-107) mmol/L Carbon Dioxide 23 (22-30) mmol/L Anion Gap 10.0 (5-15) MEQ/L BUN 11 (7-17) mg/dL Creatinine 0.76 (0.52-1.04) mg/dL Estimated GFR > 60.0 ML/MIN Glucose 94 (74-106) mg/dL Calcium 8.7 (8.4-10.2) mg/dL Total Bilirubin 0.40 (0.2-1.3) mg/dL AST 23 (14-36) U/L ALT 23 (0-35) U/L Alkaline Phosphatase 65 (38-126) U/L Serum Total Protein 7.3 (6.3-8.2) g/dL Albumin 4.1 (3.5-5.0) g/dL Urinalys Dipstick Clnc Urine Color (YELLOW) Urine Appearance (CLEAR) Urine pH (5-6) Ur Specific Freeman (1.005-1.025) POC Urine Protein Conf (Negative) Urine Ketones (NEGATIVE) Urine Nitrite (NEGATIVE) Urine Bilirubin (NEGATIVE) Urine Urobilinogen (0-1) mg/dL Urine Leukocytes (NEGATIVE) Urine WBC (Auto) (0-5) /HPF Urine RBC (Auto) (0-2) /HPF U Epithel Cells (Auto) (FEW) /HPF Urine Bacteria (Auto) (NEGATIVE) /HPF Urine RBC (0-5) Josh/ul Urine Mucus (Auto) (NEGATIVE) /HPF Ur Culture Indicated? Urine Glucose (NEGATIVE) mg/dL Urine Opiates Level NEGATIVE (NEGATIVE) Ur Methadone NEGATIVE (NEGATIVE) Urine Barbiturates NEGATIVE (NEGATIVE) Ur Phencyclidine (PCP) NEGATIVE (NEGATIVE) Urine Amphetamine NEGATIVE (NEGATIVE) U Benzodiazepine Level NEGATIVE (NEGATIVE) Urine Cocaine NEGATIVE (NEGATIVE) Urine Marijuana (THC) NEGATIVE (NEGATIVE) Ethyl Alcohol (0-10) mg/dL Influenza Type A Ag (NEGATIVE) Influenza Type B Ag (NEGATIVE) RSV (PCR) (Negative) SARS-CoV-2 (PCR) (NEGATIVE) - Radiology Impressions Radiology Exams & Impressions: Radiology Procedures Category Date Time Status CT ANGIOGRAPHY NECK [CT] Routine Exams 06/11/22 08:00 Ordered CTA HEAD W AND/OR WO CONTRAST [CT] Routine Exams 06/11/22 08:00 Ordered HEAD WITHOUT CONTRAST [CT] Stat Exams 06/10/22 08:23 Completed - Other Procedures and Tests Respiratory Therapy 06/11/22 08:45 EEG 41-60 Minutes (Normal) ONCE Assessment/Plan (1) TIA (transient ischemic attack) Current Visit: Yes Status: Acute Assessment & Plan: Possible; sz also in differential from teleneurology so I added an EEG. She really needs to f/u outpatient with neurology. CTA head/neck pending. Code(s): G45.9 - TRANSIENT CEREBRAL ISCHEMIC ATTACK, UNSPECIFIED (2) Headache Current Visit: Yes Status: Chronic Qualifiers: Headache type: unspecified Headache chronicity pattern: chronic headache Intractability: not intractable Qualified Code(s): R51.9 - Headache, unspecified; G89.29 - Other chronic pain Code(s): R51.9 - HEADACHE, UNSPECIFIED (3) Obesity Current Visit: Yes Status: Chronic Code(s): E66.9 - OBESITY, UNSPECIFIED (4) Social problem Current Visit: Yes Status: Acute Assessment & Plan: Her insurance coverage is very poor, but hospital is working with pt to cover stay/testing. Code(s): Z65.9 - PROBLEM RELATED TO UNSPECIFIED PSYCHOSOCIAL CIRCUMSTANCES Hospital Summary - Hospital Course Hospital Course: Pt is 41 yo female with hx question of TIA (was given TPA at ER in 2019) who was admitted through ER with TIA. She had sx of facial droop and difficulty speaking at work and in ER. CT head was neg. Teleneurology had some recommendations for f/u imaging; pt refused to get mri. Further testing to be done today (see A&P). Pt is feeling good currently. May be able to discharge to home today after testing if she is doing fine. Home on ASA 81 mg /d and high dose statin. F/u with neurology outpatient and PCP. - Vitals & Intake/Output Vital Signs: Vital Signs Temperature 97.9 F 06/11/22 07:24 Pulse Rate 60 06/11/22 07:24 Respiratory Rate 16 06/11/22 07:24 Blood Pressure 154/73 06/11/22 07:24 O2 Sat by Pulse Oximetry 98 06/11/22 07:24 Intake & Output: Intake & Output 06/08/22 06/09/22 06/10/22 06/11/22 11:59 11:59 11:59 11:59 Intake Total 960 Balance 960 Weight 147.6 kg 145.8 kg - Lab Result Diagrams: 06/11/22 04:25 06/11/22 04:25 Lab Results-Last 24 Hrs: Lab Results-Last 24 Hours 06/10/22 06/10/22 06/10/22 Range/Units 08:39 08:39 08:39 WBC 7.1 (4.0-10.5) x10^3/uL RBC 4.54 (4.1-5.4) x10^6/uL Hgb 11.5 L (12.0-16.0) g/dL Hct 37.9 (35-47) % MCV 83.5 (78-100) fL MCH 25.3 L (26-32) pg MCHC 30.3 L (32-36) g/dL RDW 15.3 H (11.5-14.0) % Plt Count 207 (150-450) x10^3/uL MPV 10.5 (7.5-11.0) fL Gran % 67.5 H (36.0-66.0) % Immature Gran % (Auto) 0.4 (0.00-0.4) % Nucleat RBC Rel Count 0.0 (0.00-0.1) % Eos # (Auto) 0.22 (0-0.5) x10^3/uL Immature Gran # (Auto) 0.03 (0.00-0.03) x10^3u/L Absolute Lymphs (auto) 1.68 (1.0-4.6) x10^3/uL Absolute Monos (auto) 0.35 (0.0-1.3) x10^3/uL Absolute Nucleated RBC 0.00 (0.00-0.01) x10^3u/L Lymphocytes % 23.5 L (24.0-44.0) % Monocytes % 4.9 (0.0-12.0) % Eosinophils % 3.1 (0.00-5.0) % Basophils % 0.6 (0.0-0.4) % Absolute Granulocytes 4.82 (1.4-6.9) x10^3/uL Basophils # 0.04 (0-0.4) x10^3/uL PT 9.9 (9.4-12.5) SECONDS INR 0.93 (0.8-3.0) APTT 25.7 (25.1-36.5) SECONDS Sodium 137 (137-145) mmol/L Potassium 4.2 (3.5-5.1) mmol/L Chloride 109 H (98-107) mmol/L Carbon Dioxide 20 L (22-30) mmol/L Anion Gap 11.8 (5-15) MEQ/L BUN 12 (7-17) mg/dL Creatinine 0.80 (0.52-1.04) mg/dL Estimated GFR > 60.0 ML/MIN Glucose 104 (74-106) mg/dL Calcium 9.0 (8.4-10.2) mg/dL Total Bilirubin 0.20 (0.2-1.3) mg/dL AST 27 (14-36) U/L ALT 25 (0-35) U/L Alkaline Phosphatase 70 (38-126) U/L Serum Total Protein 7.6 (6.3-8.2) g/dL Albumin 4.4 (3.5-5.0) g/dL Urinalys Dipstick Clnc Urine Color (YELLOW) Urine Appearance (CLEAR) Urine pH (5-6) Ur Specific Freeman (1.005-1.025) POC Urine Protein Conf (Negative) Urine Ketones (NEGATIVE) Urine Nitrite (NEGATIVE) Urine Bilirubin (NEGATIVE) Urine Urobilinogen (0-1) mg/dL Urine Leukocytes (NEGATIVE) Urine WBC (Auto) (0-5) /HPF Urine RBC (Auto) (0-2) /HPF U Epithel Cells (Auto) (FEW) /HPF Urine Bacteria (Auto) (NEGATIVE) /HPF Urine RBC (0-5) Josh/ul Urine Mucus (Auto) (NEGATIVE) /HPF Ur Culture Indicated? Urine Glucose (NEGATIVE) mg/dL Urine Opiates Level (NEGATIVE) Ur Methadone (NEGATIVE) Urine Barbiturates (NEGATIVE) Ur Phencyclidine (PCP) (NEGATIVE) Urine Amphetamine (NEGATIVE) U Benzodiazepine Level (NEGATIVE) Urine Cocaine (NEGATIVE) Urine Marijuana (THC) (NEGATIVE) Ethyl Alcohol (0-10) mg/dL Influenza Type A Ag (NEGATIVE) Influenza Type B Ag (NEGATIVE) RSV (PCR) (Negative) SARS-CoV-2 (PCR) (NEGATIVE) 06/10/22 06/10/22 06/10/22 Range/Units 08:39 09:26 09:30 WBC (4.0-10.5) x10^3/uL RBC (4.1-5.4) x10^6/uL Hgb (12.0-16.0) g/dL Hct (35-47) % MCV (78-100) fL MCH (26-32) pg MCHC (32-36) g/dL RDW (11.5-14.0) % Plt Count (150-450) x10^3/uL MPV (7.5-11.0) fL Gran % (36.0-66.0) % Immature Gran % (Auto) (0.00-0.4) % Nucleat RBC Rel Count (0.00-0.1) % Eos # (Auto) (0-0.5) x10^3/uL Immature Gran # (Auto) (0.00-0.03) x10^3u/L Absolute Lymphs (auto) (1.0-4.6) x10^3/uL Absolute Monos (auto) (0.0-1.3) x10^3/uL Absolute Nucleated RBC (0.00-0.01) x10^3u/L Lymphocytes % (24.0-44.0) % Monocytes % (0.0-12.0) % Eosinophils % (0.00-5.0) % Basophils % (0.0-0.4) % Absolute Granulocytes (1.4-6.9) x10^3/uL Basophils # (0-0.4) x10^3/uL PT (9.4-12.5) SECONDS INR (0.8-3.0) APTT (25.1-36.5) SECONDS Sodium (137-145) mmol/L Potassium (3.5-5.1) mmol/L Chloride (98-107) mmol/L Carbon Dioxide (22-30) mmol/L Anion Gap (5-15) MEQ/L BUN (7-17) mg/dL Creatinine (0.52-1.04) mg/dL Estimated GFR ML/MIN Glucose (74-106) mg/dL Calcium (8.4-10.2) mg/dL Total Bilirubin (0.2-1.3) mg/dL AST (14-36) U/L ALT (0-35) U/L Alkaline Phosphatase (38-126) U/L Serum Total Protein (6.3-8.2) g/dL Albumin (3.5-5.0) g/dL Urinalys Dipstick Clnc MAIN LAB Urine Color YELLOW (YELLOW) Urine Appearance CLEAR (CLEAR) Urine pH 7.0 (5-6) Ur Specific Freeman 1.015 (1.005-1.025) POC Urine Protein Conf NEGATIVE (Negative) Urine Ketones NEGATIVE (NEGATIVE) Urine Nitrite NEGATIVE (NEGATIVE) Urine Bilirubin NEGATIVE (NEGATIVE) Urine Urobilinogen 0.2 (0-1) mg/dL Urine Leukocytes NEGATIVE (NEGATIVE) Urine WBC (Auto) NONE (0-5) /HPF Urine RBC (Auto) NONE (0-2) /HPF U Epithel Cells (Auto) RARE (FEW) /HPF Urine Bacteria (Auto) NONE (NEGATIVE) /HPF Urine RBC NEGATIVE (0-5) Josh/ul Urine Mucus (Auto) SLIGHT (NEGATIVE) /HPF Ur Culture Indicated? NO Urine Glucose NEGATIVE (NEGATIVE) mg/dL Urine Opiates Level (NEGATIVE) Ur Methadone (NEGATIVE) Urine Barbiturates (NEGATIVE) Ur Phencyclidine (PCP) (NEGATIVE) Urine Amphetamine (NEGATIVE) U Benzodiazepine Level (NEGATIVE) Urine Cocaine (NEGATIVE) Urine Marijuana (THC) (NEGATIVE) Ethyl Alcohol < 10 (0-10) mg/dL Influenza Type A Ag NEGATIVE (NEGATIVE) Influenza Type B Ag NEGATIVE (NEGATIVE) RSV (PCR) NEGATIVE (Negative) SARS-CoV-2 (PCR) NEGATIVE (NEGATIVE) 06/10/22 06/11/22 06/11/22 Range/Units 09:30 04:25 04:25 WBC 7.1 (4.0-10.5) x10^3/uL RBC 4.45 (4.1-5.4) x10^6/uL Hgb 11.1 L (12.0-16.0) g/dL Hct 36.6 (35-47) % MCV 82.2 (78-100) fL MCH 24.9 L (26-32) pg MCHC 30.3 L (32-36) g/dL RDW 15.4 H (11.5-14.0) % Plt Count 215 (150-450) x10^3/uL MPV 11.0 (7.5-11.0) fL Gran % 64.1 (36.0-66.0) % Immature Gran % (Auto) 0.3 (0.00-0.4) % Nucleat RBC Rel Count 0.0 (0.00-0.1) % Eos # (Auto) 0.28 (0-0.5) x10^3/uL Immature Gran # (Auto) 0.02 (0.00-0.03) x10^3u/L Absolute Lymphs (auto) 1.78 (1.0-4.6) x10^3/uL Absolute Monos (auto) 0.44 (0.0-1.3) x10^3/uL Absolute Nucleated RBC 0.00 (0.00-0.01) x10^3u/L Lymphocytes % 25.1 (24.0-44.0) % Monocytes % 6.2 (0.0-12.0) % Eosinophils % 3.9 (0.00-5.0) % Basophils % 0.4 (0.0-0.4) % Absolute Granulocytes 4.54 (1.4-6.9) x10^3/uL Basophils # 0.03 (0-0.4) x10^3/uL PT (9.4-12.5) SECONDS INR (0.8-3.0) APTT (25.1-36.5) SECONDS Sodium 137 (137-145) mmol/L Potassium 4.0 (3.5-5.1) mmol/L Chloride 108 H (98-107) mmol/L Carbon Dioxide 23 (22-30) mmol/L Anion Gap 10.0 (5-15) MEQ/L BUN 11 (7-17) mg/dL Creatinine 0.76 (0.52-1.04) mg/dL Estimated GFR > 60.0 ML/MIN Glucose 94 (74-106) mg/dL Calcium 8.7 (8.4-10.2) mg/dL Total Bilirubin 0.40 (0.2-1.3) mg/dL AST 23 (14-36) U/L ALT 23 (0-35) U/L Alkaline Phosphatase 65 (38-126) U/L Serum Total Protein 7.3 (6.3-8.2) g/dL Albumin 4.1 (3.5-5.0) g/dL Urinalys Dipstick Clnc Urine Color (YELLOW) Urine Appearance (CLEAR) Urine pH (5-6) Ur Specific Freeman (1.005-1.025) POC Urine Protein Conf (Negative) Urine Ketones (NEGATIVE) Urine Nitrite (NEGATIVE) Urine Bilirubin (NEGATIVE) Urine Urobilinogen (0-1) mg/dL Urine Leukocytes (NEGATIVE) Urine WBC (Auto) (0-5) /HPF Urine RBC (Auto) (0-2) /HPF U Epithel Cells (Auto) (FEW) /HPF Urine Bacteria (Auto) (NEGATIVE) /HPF Urine RBC (0-5) Josh/ul Urine Mucus (Auto) (NEGATIVE) /HPF Ur Culture Indicated? Urine Glucose (NEGATIVE) mg/dL Urine Opiates Level NEGATIVE (NEGATIVE) Ur Methadone NEGATIVE (NEGATIVE) Urine Barbiturates NEGATIVE (NEGATIVE) Ur Phencyclidine (PCP) NEGATIVE (NEGATIVE) Urine Amphetamine NEGATIVE (NEGATIVE) U Benzodiazepine Level NEGATIVE (NEGATIVE) Urine Cocaine NEGATIVE (NEGATIVE) Urine Marijuana (THC) NEGATIVE (NEGATIVE) Ethyl Alcohol (0-10) mg/dL Influenza Type A Ag (NEGATIVE) Influenza Type B Ag (NEGATIVE) RSV (PCR) (Negative) SARS-CoV-2 (PCR) (NEGATIVE) - Radiology Exams Ordered Rad Exams-Entire Visit: Radiology Procedures Category Date Time Status CT ANGIOGRAPHY NECK [CT] Routine Exams 06/11/22 08:00 Ordered CTA HEAD W AND/OR WO CONTRAST [CT] Routine Exams 06/11/22 08:00 Ordered HEAD WITHOUT CONTRAST [CT] Stat Exams 06/10/22 08:23 Completed - Procedures and Test Procedures and Tests throughout Hospitalization: Therapy Orders & Screens 06/10/22 13:09 Smoking Cessation Education ONCE Comment: Diagnosis: TIA Smoking Status: Current every day smoker How long have you smoked: yrs Have you smoked in the past 12 months: Yes Approximately how many cigarettes per day: 10 Do you dip or chew tobacco: No 06/11/22 08:40 Speech Therapy Eval & Treat [ST Eval & Alok ( Order)] .as ordered Reason For Exam: Physician Instructions: Comment: Evaluate: Yes Treat: Yes Reason for Eval: Question of TIA Diagnosis: TIA 06/11/22 08:45 EEG 41-60 Minutes (Normal) ONCE Comment: Reason For Exam: Diagnosis: TIA - Discharge Disposition: Home, Self-Care Condition: Stable Prescriptions: No Action Metoprolol Succinate 25 mg Xl* [Toprol-Xl 25MG Tablets] 12.5 mg PO BID Follow up with: SERENITY MCCONNELL NP [Primary Care Provider] -
--- NOTE | 2022-06-11 09:56 | XRAY ---
Indication: TIA. Slurred speech. Conventional contrast enhanced CTA neck performed using 100 cc Isovue 370 contrast. Two-dimensional sagittal and coronal reformatted images obtained. Additional 3-dimensional reformatted images obtained using a separate workstation. Comparison: March 23, 2020 Visualized aortic arch demonstrates normal patent branching right brachiocephalic, left common carotid, and left subclavian arteries. Examination of the right carotid circulation demonstrates normal CTA appearance to the common carotid, carotid bulb, internal carotid, and external carotid arteries. Examination of the left carotid circulation also demonstrates normal CTA appearance to the common carotid, carotid bulb, internal carotid, and external carotid arteries. Vertebral arteries are bilaterally symmetric without critical stenosis, obstruction, or AV malformation. Visualized soft tissues demonstrate homogeneous thyroid enhancement. Small centimeter/subcentimeter cervical and submandibular lymph nodes bilaterally, none pathologically enlarged. Supra and infraglottic airway widely patent. Normal epiglottis. Osseous structures intact with minimal C5-C6 degenerative changes. Lung apices are clear. Impression: Continued normal CTA neck with contrast exam.
[2022-06-11] MEDS ORDERED: ECOTRIN 81 MG PO SCH (10:00)
--- NOTE | 2022-06-11 10:05 | XRAY ---
Indication: TIA. Slurred speech. Conventional contrast enhanced CTA head performed using 100 cc Isovue 370 contrast. Two-dimensional sagittal and coronal reformatted images obtained. Additional 3-dimensional reformatted images obtained using a separate workstation. Comparison: June 11, 2020 Distal internal carotid arteries are negative for critical stenosis, obstruction, or AV malformation. Normal carotid terminus with normal branching A1 and M1 segments bilaterally. More distal anterior cerebral and middle cerebral arteries are normal in CTA appearance. Posterior circulation demonstrates normal appearance to the basilar, left/right posterior cerebral, and left/right superior cerebellar arteries. Venous drainage/sinuses unremarkable. Remaining brain is negative for abnormal enhancing intra-or extra-axial mass.. Impression: Continued normal CTA brain with contrast exam.
[2022-06-11 11:27] VITALS: BP 136/84; PULSE 63; O2SAT 100
== END 2022-06-11 14:45 | disposition home or self-care (01) ==
LOC: ED 08:22 → MED SURG 12:03
PROVIDERS: ADMIT Family Medicine; ATTEND Family Medicine
DX: G45.9 Transient cerebral ischemic attack, unspecified (principal); R51.9 Headache, unspecified; I10 Essential (primary) hypertension; E66.9 Obesity, unspecified; Z72.0 Tobacco use; Z79.899 Other long term (current) drug therapy; Z20.828 Contact with and (suspected) exposure to other viral communicable diseases; Z65.9 Problem related to unspecified psychosocial circumstances
CPT/HCPCS: 0241U; 36415; 70450; 70496; 70498; 80053; 80061; 80307; 81015; 83036; 83721; 84443; 85025; 85610; 85730; 93005; 93268; 95812; 99285; 99291; G0378; J1650; A9270-GY; G0480

== ENCOUNTER 2022-08-02 09:17 | Emergency (ER) | payer OTHER ==
[2022-08-02 09:39] LABS: Absolute Neutrophil Ct (ANC) 4.01 x10^3/uL (1.4-6.9); Basophil (Absolute #) 0.04 x10^3/uL (0-0.4); Eosinophil % 3.9 % (0.00-5.0); Eosinophil (Absolute #) 0.25 x10^3/uL (0-0.5); Hematocrit 37.8 % (35-47); Hemoglobin 11.4 g/dL (12.0-16.0); Lymphocyte (Absolute #) 1.69 x10^3/uL (1.0-4.6); Lymphocytes % 26.2 % (24.0-44.0); Mean Corpuscular Hemoglobin 24.7 pg (26-32); Mean Corpuscular Hgb Concent. 30.2 g/dL (32-36); Mean Platelet Volume 10.8 fL (7.5-11.0); Monocyte (Absolute #) 0.45 x10^3/uL (0.0-1.3); Neutrophil % 62.1 % (36.0-66.0); Platelet Count 223 x10^3/uL (150-450); Red Blood Count 4.61 x10^6/uL (4.1-5.4); Red Cell Distribution Width 15.6 % (11.5-14.0); White Blood Count 6.5 x10^3/uL (4.0-10.5)
--- NOTE | 2022-08-02 09:40 | ERPHSYRPT ---
- History of Present Illness Source: patient, other () Exam Limitations: clinical condition Physician History: 42 yo wf w h/o CVA 2020 w TPA administration presents w expressive aphasia x 30- 45 minutes. Pt has no focal weakness or facial droop and was able to transfer to the bed wo difficulty. Her daughter who has since left the ER told nursing that pt was getting into the shower when she developed the expressive aphasia. She was seen in the ER on 06/10/22 for same complaint w neg CT of head and neg CTA of head/neck. Her symptoms improved rapidly at that time. Neuro consult at that time did not rec TPA as TIA was presumed. She was admitted and discharged the next day. Pt is currently on Plavix. Timing/Duration: other (30-45minutes) Severity: mild Character of Deficits: other (Expressive aphasia) Baseline/Normal Cognition: alert oriented x 3 Baseline Gait: walks w/o assistance Associated Symptoms: denies symptoms, other (Expressive aphasia only) Allergies/Adverse Reactions: nickel [Nickel] Allergy (Mild, Verified 08/02/22 09:22) Swelling Home Medications: Clopidogrel Bisulfate [PLAVIX Tablet] 1 tab PO DAILY 08/02/22 [History] Hx Tetanus, Diphtheria Vaccination/Date Given: No Hx Influenza Vaccination/Date Given: No Hx Pneumococcal Vaccination/Date Given: No Travel Risk - Vaccine Status Have you recieved a Covid-19 vaccination: Yes [employer] - Vaccination Dates Date of 2cond Vaccination (if applicable): na - Review of Systems Constitutional: No Symptoms Eyes: No Symptoms Ears, Nose, & Throat: No Symptoms Respiratory: No Symptoms Cardiac: No Symptoms Abdominal/Gastrointestinal: No Symptoms Genitourinary Symptoms: No Symptoms Musculoskeletal: No Symptoms Skin: No Symptoms Psychological: No Symptoms Endocrine: No Symptoms Hematologic/Lymphatic: No Symptoms Immunological/Allergic: Pollen Allergy - Past Medical History Pertinent Past Medical History: No Neurological History: Stroke ENT History: No Pertinent History Cardiac History: No Pertinent History Respiratory History: No Pertinent History Endocrine Medical History: No Pertinent History Musculoskeletal History: No Pertinent History GI Medical History: No Pertinent History History: No Pertinent History Psycho-Social History: No Pertinent History Female Reproductive Disorders: No Pertinent History Other Medical History: stoke 2-3 years ago. TPA'D 2019 - Past Surgical History Past Surgical History: Yes Neuro Surgical History: No Pertinent History Cardiac: No Pertinent History Respiratory: No Pertinent History Gastrointestinal: No Pertinent History Genitourinary: No Pertinent History Musculoskeletal: No Pertinent History Female Surgical History: Section, Tubal Ligation - Social History Smoking Status: Current every day smoker How long have you smoked: yrs Exposure to second hand smoke: No Drug Use: none Patient Lives Alone: No Significant Family History: no pertinent family hx - Female History Hx Now: No - Nursing Vital Signs Nursing Vital Signs: Initial Vital Signs Temperature 97.8 F 08/02/22 09:23 Pulse Rate 76 08/02/22 09:23 Respiratory Rate 15 08/02/22 09:23 Blood Pressure 142/89 08/02/22 09:23 O2 Sat by Pulse Oximetry 100 08/02/22 09:23 Pain Scale Pain Intensity 0 Hypertensive - [place] Coma Scale Best Eye Response ([place]): (4) open spontaneously (Pt w expressive aphasia but appears to be otherwise neurologically intact) Best Motor Response ([place]): (6) obeys commands - Physical Exam General Appearance: anxiety Ears, Nose, Throat Exam: normal ENT inspection Neck Exam: normal inspection, non-tender, supple, full range of motion, No meningismus, No mass, No Brudzinski, No Kernig's, No carotid bruit Respiratory: normal breath sounds, lungs clear, airway intact Cardiovascular: regular rate/rhythm, normal heart sounds, normal peripheral pulses, capillary refill <2 sec, No murmur Gastrointestinal: soft, normal bowel sounds, No tenderness Back Exam: normal inspection, normal range of motion, No CVA tenderness, No vertebral tenderness Extremity Exam: normal inspection, normal range of motion Peripheral Pulses: carotid (R): 2+, carotid (L): 2+ Mental Status: cooperative Motor/Sensory: no motor deficit Skin Exam: normal color, warm, dry, No rash SpO2 Interpretation: normal SpO2: 100 O2 Delivery: Room Air - Course Nursing assessment & vital signs reviewed: Yes EKG Interpreted by Me: RATE (Sinus jesus manuel/Rate 56/Normal QT-QTc/Low voltage/Flat Twaves/No acute ST changes) - CT Exams Head CT Interpretation: Discussed w/radiologist (CT head/CTA head-neck neg per Rad) Ordered Tests: Active Orders 24 hr Category Date Time Status EKG-ER Only STAT Care 08/02/22 09:[address] ANGIOGRAPHY NECK [CT] Stat Exams 08/02/22 09:38 Completed CTA HEAD W AND/OR WO CONTRAST [CT] Stat Exams 08/02/22 09:38 Completed HEAD WITHOUT CONTRAST [CT] Stat Exams 08/02/22 09:18 Completed CBC W DIFF Stat Lab 08/02/22 09:25 Completed CMP Stat Lab 08/02/22 09:25 Completed Lactic Acid Stat Lab 08/02/22 09:34 Completed PROTIME WITH INR Stat Lab 08/02/22 09:25 Completed PTT Stat Lab 08/02/22 09:25 Completed TROPONIN Q4H Lab 08/02/22 09:25 Completed TROPONIN Q4H Lab 08/02/22 12:40 Completed UA W/RFX CULTURE Stat Lab 08/02/22 11:17 Completed Urine Triage Profile Stat Lab 08/02/22 12:30 Completed Lab/Rad Data: Laboratory Result Diagrams 08/02/22 09:25 08/02/22 09:25 Laboratory Results 08/02/22 08/02/22 12 Range/Units 12:40 12:30 11:17 WBC (4.0-10.5) x10^3/uL RBC (4.1-5.4) x10^6/uL Hgb (12.0-16.0) g/dL Hct (35-47) % MCV (78-100) fL MCH (26-32) pg MCHC (32-36) g/dL RDW (11.5-14.0) % Plt Count (150-450) x10^3/uL MPV (7.5-11.0) fL Gran % (36.0-66.0) % Immature Gran % (Auto) (0.00-0.4) % Nucleat RBC Rel Count (0.00-0.1) % Eos # (Auto) (0-0.5) x10^3/uL Immature Gran # (Auto) (0.00-0.03) x10^3u/L Absolute Lymphs (auto) (1.0-4.6) x10^3/uL Absolute Monos (auto) (0.0-1.3) x10^3/uL Absolute Nucleated RBC (0.00-0.01) x10^3u/L Lymphocytes % (24.0-44.0) % Monocytes % (0.0-12.0) % Eosinophils % (0.00-5.0) % Basophils % (0.0-0.4) % Absolute Granulocytes (1.4-6.9) x10^3/uL Basophils # (0-0.4) x10^3/uL PT (9.4-12.5) SECONDS INR (0.8-3.0) APTT (25.1-36.5) SECONDS Sodium (137-145) mmol/L Potassium (3.5-5.1) mmol/L Chloride (98-107) mmol/L Carbon Dioxide (22-30) mmol/L Anion Gap (5-15) MEQ/L BUN (7-17) mg/dL Creatinine (0.52-1.04) mg/dL Estimated GFR ML/MIN Glucose (74-106) mg/dL Lactic Acid (0.4-2.0) Calcium (8.4-10.2) mg/dL Total Bilirubin (0.2-1.3) mg/dL AST (14-36) U/L ALT (0-35) U/L Alkaline Phosphatase (38-126) U/L Troponin I < 0.012 (0.000-0.034) ng/mL Serum Total Protein (6.3-8.2) g/dL Albumin (3.5-5.0) g/dL Urinalys Dipstick Clnc MAIN LAB Urine Color YELLOW (YELLOW) Urine Appearance SLIGHTLY (CLEAR) Urine pH 6.5 (5-6) Ur Specific [place] 1.015 (1.005-1.025) POC Urine Protein Conf NEGATIVE (Negative) Urine Ketones NEGATIVE (NEGATIVE) Urine Nitrite NEGATIVE (NEGATIVE) Urine Bilirubin NEGATIVE (NEGATIVE) Urine Urobilinogen 0.2 (0-1) mg/dL Urine Leukocytes TRACE A (NEGATIVE) Urine WBC (Auto) NONE (0-5) /HPF Urine RBC (Auto) NONE (0-2) /HPF U Epithel Cells (Auto) RARE (FEW) /HPF Urine Bacteria (Auto) NONE (NEGATIVE) /HPF Urine RBC NEGATIVE (0-5) Josh/ul Urine Mucus (Auto) SLIGHT A (NEGATIVE) /HPF Ur Culture Indicated? NO Urine Glucose NEGATIVE (NEGATIVE) mg/dL Urine Opiates Level NEGATIVE (NEGATIVE) Ur Methadone NEGATIVE (NEGATIVE) Urine Barbiturates NEGATIVE (NEGATIVE) Ur Phencyclidine (PCP) NEGATIVE (NEGATIVE) Urine Amphetamine NEGATIVE (NEGATIVE) U Benzodiazepine Level NEGATIVE (NEGATIVE) Urine Cocaine NEGATIVE (NEGATIVE) Urine Marijuana (THC) NEGATIVE (NEGATIVE) 08/02/22 08/02/22 08/02/22 Range/Units 09:34 09:25 09:25 WBC (4.0-10.5) x10^3/uL RBC (4.1-5.4) x10^6/uL Hgb (12.0-16.0) g/dL Hct (35-47) % MCV (78-100) fL MCH (26-32) pg MCHC (32-36) g/dL RDW (11.5-14.0) % Plt Count (150-450) x10^3/uL MPV (7.5-11.0) fL Gran % (36.0-66.0) % Immature Gran % (Auto) (0.00-0.4) % Nucleat RBC Rel Count (0.00-0.1) % Eos # (Auto) (0-0.5) x10^3/uL Immature Gran # (Auto) (0.00-0.03) x10^3u/L Absolute Lymphs (auto) (1.0-4.6) x10^3/uL Absolute Monos (auto) (0.0-1.3) x10^3/uL Absolute Nucleated RBC (0.00-0.01) x10^3u/L Lymphocytes % (24.0-44.0) % Monocytes % (0.0-12.0) % Eosinophils % (0.00-5.0) % Basophils % (0.0-0.4) % Absolute Granulocytes (1.4-6.9) x10^3/uL Basophils # (0-0.4) x10^3/uL PT 9.9 (9.4-12.5) SECONDS INR 0.93 (0.8-3.0) APTT 25.9 (25.1-36.5) SECONDS Sodium (137-145) mmol/L Potassium (3.5-5.1) mmol/L Chloride (98-107) mmol/L Carbon Dioxide (22-30) mmol/L Anion Gap (5-15) MEQ/L BUN (7-17) mg/dL Creatinine (0.52-1.04) mg/dL Estimated GFR ML/MIN Glucose (74-106) mg/dL Lactic Acid 0.9 (0.4-2.0) Calcium (8.4-10.2) mg/dL Total Bilirubin (0.2-1.3) mg/dL AST (14-36) U/L ALT (0-35) U/L Alkaline Phosphatase (38-126) U/L Troponin I < 0.012 (0.000-0.034) ng/mL Serum Total Protein (6.3-8.2) g/dL Albumin (3.5-5.0) g/dL Urinalys Dipstick Clnc Urine Color (YELLOW) Urine Appearance (CLEAR) Urine pH (5-6) Ur Specific [place] (1.005-1.025) POC Urine Protein Conf (Negative) Urine Ketones (NEGATIVE) Urine Nitrite (NEGATIVE) Urine Bilirubin (NEGATIVE) Urine Urobilinogen (0-1) mg/dL Urine Leukocytes (NEGATIVE) Urine WBC (Auto) (0-5) /HPF Urine RBC (Auto) (0-2) /HPF U Epithel Cells (Auto) (FEW) /HPF Urine Bacteria (Auto) (NEGATIVE) /HPF Urine RBC (0-5) Josh/ul Urine Mucus (Auto) (NEGATIVE) /HPF Ur Culture Indicated? Urine Glucose (NEGATIVE) mg/dL Urine Opiates Level (NEGATIVE) Ur Methadone (NEGATIVE) Urine Barbiturates (NEGATIVE) Ur Phencyclidine (PCP) (NEGATIVE) Urine Amphetamine (NEGATIVE) U Benzodiazepine Level (NEGATIVE) Urine Cocaine (NEGATIVE) Urine Marijuana (THC) (NEGATIVE) 08/02/22 08/02/22 Range/Units 09:25 09:25 WBC 6.5 (4.0-10.5) x10^3/uL RBC 4.61 (4.1-5.4) x10^6/uL Hgb 11.4 L (12.0-16.0) g/dL Hct 37.8 (35-47) % MCV 82.0 (78-100) fL MCH 24.7 L (26-32) pg MCHC 30.2 L (32-36) g/dL RDW 15.6 H (11.5-14.0) % Plt Count 223 (150-450) x10^3/uL MPV 10.8 (7.5-11.0) fL Gran % 62.1 (36.0-66.0) % Immature Gran % (Auto) 0.2 (0.00-0.4) % Nucleat RBC Rel Count 0.0 (0.00-0.1) % Eos # (Auto) 0.25 (0-0.5) x10^3/uL Immature Gran # (Auto) 0.01 (0.00-0.03) x10^3u/L Absolute Lymphs (auto) 1.69 (1.0-4.6) x10^3/uL Absolute Monos (auto) 0.45 (0.0-1.3) x10^3/uL Absolute Nucleated RBC 0.00 (0.00-0.01) x10^3u/L Lymphocytes % 26.2 (24.0-44.0) % Monocytes % 7.0 (0.0-12.0) % Eosinophils % 3.9 (0.00-5.0) % Basophils % 0.6 (0.0-0.4) % Absolute Granulocytes 4.01 (1.4-6.9) x10^3/uL Basophils # 0.04 (0-0.4) x10^3/uL PT (9.4-12.5) SECONDS INR (0.8-3.0) APTT (25.1-36.5) SECONDS Sodium 139 (137-145) mmol/L Potassium 4.2 (3.5-5.1) mmol/L Chloride 110 H (98-107) mmol/L Carbon Dioxide 20 L (22-30) mmol/L Anion Gap 12.6 (5-15) MEQ/L BUN 11 (7-17) mg/dL Creatinine 0.85 (0.52-1.04) mg/dL Estimated GFR > 60.0 ML/MIN Glucose 108 H (74-106) mg/dL Lactic Acid (0.4-2.0) Calcium 8.5 (8.4-10.2) mg/dL Total Bilirubin 0.30 (0.2-1.3) mg/dL AST 31 (14-36) U/L ALT 24 (0-35) U/L Alkaline Phosphatase 71 (38-126) U/L Troponin I (0.000-0.034) ng/mL Serum Total Protein 7.4 (6.3-8.2) g/dL Albumin 4.2 (3.5-5.0) g/dL Urinalys Dipstick Clnc Urine Color (YELLOW) Urine Appearance (CLEAR) Urine pH (5-6) Ur Specific [place] (1.005-1.025) POC Urine Protein Conf (Negative) Urine Ketones (NEGATIVE) Urine Nitrite (NEGATIVE) Urine Bilirubin (NEGATIVE) Urine Urobilinogen (0-1) mg/dL Urine Leukocytes (NEGATIVE) Urine WBC (Auto) (0-5) /HPF Urine RBC (Auto) (0-2) /HPF U Epithel Cells (Auto) (FEW) /HPF Urine Bacteria (Auto) (NEGATIVE) /HPF Urine RBC (0-5) Josh/ul Urine Mucus (Auto) (NEGATIVE) /HPF Ur Culture Indicated? Urine Glucose (NEGATIVE) mg/dL Urine Opiates Level (NEGATIVE) Ur Methadone (NEGATIVE) Urine Barbiturates (NEGATIVE) Ur Phencyclidine (PCP) (NEGATIVE) Urine Amphetamine (NEGATIVE) U Benzodiazepine Level (NEGATIVE) Urine Cocaine (NEGATIVE) Urine Marijuana (THC) (NEGATIVE) - Progress Progress: improved Progress Note: 08/02/22 10:36 Pt's expressive aphasia completely resolved after return from CT. 08/02/22 13:01 Teleneuro consult-TIA vs psychogenic/OK to dc/continue Plavix 08/02/22 18:07 Pt wo focal weakness during entire stay Counseled pt/family regarding: lab results, diagnosis, need for follow-up, rad results - Departure Departure Disposition: Home Clinical Impression: TIA (transient ischemic attack) Condition: Stable Critical Care Time: Yes Critical Care Time(excluding separately billable procedures): Critical 30-74 mins Referrals: SERENITY MCCONNELL NP [Primary Care Provider] - Follow up/PCP as directed Instructions: Transient Ischemic Attack (DC) Additional Instructions: Continue with Plavix Follow up with Family MD on Friday Return to ER for focal weakness or return of symptoms
[2022-08-02 09:52] LABS: ALBUMIN 4.2 g/dL (3.5-5.0); ALKALINE PHOSPHATASE 71 U/L (38-126); ANION GAP 12.6 MEQ/L (5-15); BLOOD UREA NITROGEN 11 mg/dL (7-17); CHLORIDE 110 mmol/L (98-107); Calcium 8.5 mg/dL (8.4-10.2); Carbon Dioxide 20 mmol/L (22-30); Creatinine 1 0.85 mg/dL (0.52-1.04); EST GLOMERULAR FILTRATION RATE > 60.0 ML/MIN; Glucose 108 mg/dL (74-106); Potassium 4.2 mmol/L (3.5-5.1); SGOT/AST 31 U/L (14-36); SGPT/ALT 24 U/L (0-35); SODIUM 139 mmol/L (137-145); Total Protein 7.4 g/dL (6.3-8.2)
[2022-08-02 09:54] LABS: INR 0.93 (0.8-3.0); PROTIME 9.9 SECONDS (9.4-12.5); PTT 25.9 SECONDS (25.1-36.5)
--- NOTE | 2022-08-02 10:11 | XRAY ---
Indication: Expressive aphasia. Multiple contiguous axial images obtained through the head without contrast. Comparison: June 10, 2022 Normal appearing brain parenchyma, ventricles, and bony calvarium. Visualized paranasal sinuses and mastoid air cells are clear. Impression: Continued normal CT head without contrast exam. Note is made of normal CTA neck and CTA head June 10, 2022.
--- NOTE | 2022-08-02 10:47 | XRAY ---
Indication: Expressive aphasia. Conventional contrast enhanced CTA neck performed using 100 cc Isovue 370 contrast. 2-D sagittal and coronal reformatted images obtained. Additional 3-D reformatted images obtained using separate workstation. Comparison: March 23, 2020 and June 11, 2022. Normal CTA appearance to the visualized aortic arch and branching right brachiocephalic, left common carotid, and left subclavian arteries. Normal CTA appearance to the common carotid, carotid bulb, internal carotid, and external carotid arteries bilaterally. Normal CTA appearance to the vertebral arteries bilaterally. Visualized soft tissues again demonstrates centimeter/subcentimeter cervical and submandibular lymph nodes, none pathologically enlarged. Thyroid gland enhances homogeneously. Supra and infraglottic airway widely patent. Cervical spine intact with minimal degenerative endplate spurring. Lung apices are clear. Impression: Compared to the last 2 CTA exams, CTA neck with contrast exam remains normal.
--- NOTE | 2022-08-02 10:51 | XRAY ---
Indication: Expressive aphasia. Conventional contrast enhanced CTA head performed using 100 cc Isovue 370 contrast. 2-D sagittal and coronal reformatted images obtained. Additional 3-D reformatted images obtained using separate workstation. Comparison: March 23, 2020 and June 11, 2022. Normal CTA appearance to the distal internal carotid arteries bilaterally. Normal carotid terminus with normal branching A1 and M1 segments bilaterally. More distal anterior and middle cerebral arteries demonstrates normal CTA appearance bilaterally. Posterior circulation demonstrates normal CTA appearance to the basilar, left/right posterior cerebral, and left/right superior cerebellar arteries. Venous drainage/sinuses unremarkable. Whole brain images negative for abnormal enhancing intra or extra-axial mass. Impression: Compared to the last 2 CTA exams, CTA head with contrast exam remains normal.
[2022-08-02 13:09] LABS: Epithelial Cells RARE /HPF (FEW); Mucus SLIGHT /HPF (NEGATIVE)
[2022-08-02 13:10] VITALS: BP 156/87; PULSE 60
[2022-08-02 13:17] LABS: Amphetamine,Urine NEGATIVE (NEGATIVE); Barbiturate,Urine NEGATIVE (NEGATIVE); Benzodiazepine,Urine NEGATIVE (NEGATIVE); Cocaine,Urine NEGATIVE (NEGATIVE); Methadone,Urine NEGATIVE (NEGATIVE); Opiate,Urine NEGATIVE (NEGATIVE); PCP,Urine NEGATIVE (NEGATIVE); THC,Urine NEGATIVE (NEGATIVE)
[2022-08-02 13:20] LABS: Appearance SLIGHTLY (CLEAR); Bilirubin NEGATIVE (NEGATIVE); Dipstick done @ ? MAIN LAB; Glucose NEGATIVE (NEGATIVE); Ketones NEGATIVE (NEGATIVE); Nitrite NEGATIVE (NEGATIVE); Ph 6.5 (5-6); Protein,Urine Dip NEGATIVE (Negative); RBC NEGATIVE Ery/ul (0-5); Specific Gravity 1.015 (1.005-1.025); Urobilinogen 0.2 mg/dL (0-1)
[2022-08-02 13:21] LABS: Urine Cultured Indicated? NO
[2022-08-02 18:08] VITALS: O2SAT 100
== END 2022-08-02 13:11 | disposition home or self-care (01) ==
LOC: ED 09:17
DX: G45.9 Transient cerebral ischemic attack, unspecified (principal); R47.01 Aphasia; Z79.02 Long term (current) use of antithrombotics/antiplatelets; Z72.0 Tobacco use
CPT/HCPCS: 36415; 70450; 70496; 70498; 80053; 80307; 81015; 83605; 84484; 85025; 85610; 85730; 93005; 93041; 99284; 99291

== ENCOUNTER 2022-09-04 17:22 | Emergency (ER) | payer SELFPAY ==
--- NOTE | 2022-09-04 17:27 | ERPHSYRPT ---
- History of Present Illness Time Seen by Provider: 09/04/22 17:27 Source: patient, family, old records Exam Limitations: no limitations Physician History: This is a 42-year-old morbidly obese white female has had a CVA in the past and required tPA in 2019 and presents with left-sided weakness. Patient states that the onset was approximate 15 to 20 minutes prior to arrival to the emergency department. There is been no new medicines. No new acute stressors. Patient also states that she started to have some chest pain. She has no abdominal pain. She has had no vomiting or diarrhea type symptoms. She has had no fevers. Patient is on Plavix. Additional history was obtained by old records and by patient's patient is on metoprolol and Plavix. Patient denies head injury. Timing/Duration: today Severity: mild (To moderate) Associated Symptoms: chest pain (Onset in the emergency department central, substernal nonradiating), other (Left side numbness) Allergies/Adverse Reactions: nickel [Nickel] Allergy (Mild, Verified 09/04/22 18:15) Swelling Home Medications: Clopidogrel Bisulfate [PLAVIX Tablet] 1 tab PO DAILY 08/02/22 [History] Hx Tetanus, Diphtheria Vaccination/Date Given: No Hx Influenza Vaccination/Date Given: No Hx Pneumococcal Vaccination/Date Given: No Travel Risk - International Travel Have you traveled outside of the country in past 3 weeks: No - Coronavirus Screening Are you exhibiting any of the following symptoms?: No Close contact with a COVID-19 positive Pt in past 14-21 Days: No - Vaccine Status Have you recieved a Covid-19 vaccination: Yes [employer]: [employer] - Vaccination Dates Date of 2cond Vaccination (if applicable): na - Review of Systems Constitutional: No Symptoms Eyes: No Symptoms Ears, Nose, & Throat: No Symptoms Respiratory: No Symptoms Cardiac: No Symptoms Abdominal/Gastrointestinal: No Symptoms Genitourinary Symptoms: No Symptoms Musculoskeletal: No Symptoms Skin: No Symptoms Neurological: No Symptoms Psychological: Anxiety Endocrine: No Symptoms Hematologic/Lymphatic: No Symptoms Immunological/Allergic: No Symptoms All Other Systems: Reviewed and Negative - Past Medical History Pertinent Past Medical History: No Neurological History: Stroke ENT History: No Pertinent History Cardiac History: No Pertinent History Respiratory History: No Pertinent History Endocrine Medical History: No Pertinent History Musculoskeletal History: No Pertinent History GI Medical History: No Pertinent History History: No Pertinent History Psycho-Social History: No Pertinent History Female Reproductive Disorders: No Pertinent History Other Medical History: stoke 2-3 years ago. TPA'D 2019 - Past Surgical History Past Surgical History: Yes Neuro Surgical History: No Pertinent History Cardiac: No Pertinent History Respiratory: No Pertinent History Gastrointestinal: No Pertinent History Genitourinary: No Pertinent History Musculoskeletal: No Pertinent History Female Surgical History: Section, Tubal Ligation - Social History Smoking Status: Current every day smoker How long have you smoked: yrs Exposure to second hand smoke: No Drug Use: none Patient Lives Alone: No Significant Family History: no pertinent family hx - Female History Hx Now: No - Nursing Vital Signs Nursing Vital Signs: Initial Vital Signs Temperature 97.6 F 09/04/22 17:44 Pulse Rate 66 09/04/22 17:44 Respiratory Rate 18 09/04/22 17:44 Blood Pressure 132/95 09/04/22 17:44 O2 Sat by Pulse Oximetry 100 09/04/22 17:44 Pain Scale Pain Intensity 0 - Physical Exam General Appearance: mild distress, alert, anxiety, obese Eye Exam: PERRL/EOMI, eyes nml inspection Ears, Nose, Throat Exam: normal ENT inspection, moist mucous membranes Neck Exam: normal inspection, non-tender, supple, full range of motion Respiratory Exam: normal breath sounds, chest tenderness, lungs clear, airway intact, No respiratory distress Cardiovascular Exam: regular rate/rhythm, normal heart sounds, normal peripheral pulses Gastrointestinal/Abdomen Exam: soft, normal bowel sounds, No tenderness Pelvic Exam: not done Rectal Exam: deferred Back Exam: normal inspection, normal range of motion, No CVA tenderness Extremity Exam: normal inspection, normal range of motion, pelvis stable Neurologic Exam: alert, oriented x 3, cooperative, director of capital giving II-XII nml as tested, other Skin Exam: normal color (This), warm, dry Lymphatic Exam: No adenopathy SpO2 Interpretation: normal O2 Delivery: Room Air Ordered Tests: Active Orders 24 hr Category Date Time Status Disease Case Manager STAT Care 09/04/22 17:55 Active EKG-ER Only STAT Care 09/04/22 17:54 Active IV Insertion STAT Care 09/04/22 17:54 Active NPO (ED) STAT Care 09/04/22 17:54 Active Pulse Oximetry (ED) STAT Care 09/04/22 17:54 Active HEAD WITHOUT CONTRAST [CT] Stat Exams 09/04/22 17:24 Taken CBC W DIFF Stat Lab 09/04/22 18:05 Completed CMP Stat Lab 09/04/22 18:05 Completed D-DIMER QUANTITATIVE Stat Lab 09/04/22 18:05 Completed ETHYL ALCOHOL Stat Lab 09/04/22 18:05 Completed MAGNESIUM Stat Lab 09/04/22 18:05 Completed PROTIME WITH INR Stat Lab 09/04/22 18:05 Completed TROPONIN Q4H Lab 09/04/22 18:05 Completed TROPONIN Q4H Lab 09/04/22 22:00 Ordered TROPONIN Q4H Lab 09/05/22 02:00 Ordered UA W/RFX UR CULTURE Stat Lab 09/04/22 17:54 Ordered Urine Triage Profile Stat Lab 09/04/22 17:54 Ordered Lab/Rad Data: Laboratory Result Diagrams 09/04/22 18:05 09/04/22 18:05 Laboratory Results 09/04/22 09/04/22 09/04/22 Range/Units 18:05 18:05 18:05 WBC (4.0-10.5) x10^3/uL RBC (4.1-5.4) x10^6/uL Hgb (12.0-16.0) g/dL Hct (35-47) % MCV (78-100) fL MCH (26-32) pg MCHC (32-36) g/dL RDW (11.5-14.0) % Plt Count (150-450) x10^3/uL MPV (7.5-11.0) fL Gran % (36.0-66.0) % Immature Gran % (Auto) (0.00-0.4) % Nucleat RBC Rel Count (0.00-0.1) % Eos # (Auto) (0-0.5) x10^3/uL Immature Gran # (Auto) (0.00-0.03) x10^3u/L Absolute Lymphs (auto) (1.0-4.6) x10^3/uL Absolute Monos (auto) (0.0-1.3) x10^3/uL Absolute Nucleated RBC (0.00-0.01) x10^3u/L Lymphocytes % (24.0-44.0) % Monocytes % (0.0-12.0) % Eosinophils % (0.00-5.0) % Basophils % (0.0-0.4) % Absolute Granulocytes (1.4-6.9) x10^3/uL Basophils # (0-0.4) x10^3/uL PT 10.3 (9.4-12.5) SECONDS INR 0.97 (0.8-3.0) D-Dimer 0.46 (0.0-0.50) mg/L Sodium 137 (137-145) mmol/L Potassium 4.5 (3.5-5.1) mmol/L Chloride 108 H (98-107) mmol/L Carbon Dioxide 22 (22-30) mmol/L Anion Gap 10.9 (5-15) MEQ/L BUN 11 (7-17) mg/dL Creatinine 0.87 (0.52-1.04) mg/dL Estimated GFR > 60.0 ML/MIN Glucose 97 (74-106) mg/dL Calcium 8.4 (8.4-10.2) mg/dL Magnesium 1.9 (1.6-2.3) mg/dL Total Bilirubin 0.50 (0.2-1.3) mg/dL AST 40 H (14-36) U/L ALT 35 (0-35) U/L Alkaline Phosphatase 62 (38-126) U/L Troponin I < 0.012 (0.000-0.034) ng/mL Serum Total Protein 7.7 (6.3-8.2) g/dL Albumin 4.4 (3.5-5.0) g/dL Ethyl Alcohol < 10 (0-10) mg/dL 09/04/22 Range/Units 18:05 WBC 5.1 (4.0-10.5) x10^3/uL RBC 4.51 (4.1-5.4) x10^6/uL Hgb 11.3 L (12.0-16.0) g/dL Hct 36.8 (35-47) % MCV 81.6 (78-100) fL MCH 25.1 L (26-32) pg MCHC 30.7 L (32-36) g/dL RDW 15.0 H (11.5-14.0) % Plt Count 211 (150-450) x10^3/uL MPV 10.6 (7.5-11.0) fL Gran % 64.2 (36.0-66.0) % Immature Gran % (Auto) 0.2 (0.00-0.4) % Nucleat RBC Rel Count 0.0 (0.00-0.1) % Eos # (Auto) 0.17 (0-0.5) x10^3/uL Immature Gran # (Auto) 0.01 (0.00-0.03) x10^3u/L Absolute Lymphs (auto) 1.39 (1.0-4.6) x10^3/uL Absolute Monos (auto) 0.24 (0.0-1.3) x10^3/uL Absolute Nucleated RBC 0.00 (0.00-0.01) x10^3u/L Lymphocytes % 27.2 (24.0-44.0) % Monocytes % 4.7 (0.0-12.0) % Eosinophils % 3.3 (0.00-5.0) % Basophils % 0.4 (0.0-0.4) % Absolute Granulocytes 3.28 (1.4-6.9) x10^3/uL Basophils # 0.02 (0-0.4) x10^3/uL PT (9.4-12.5) SECONDS INR (0.8-3.0) D-Dimer (0.0-0.50) mg/L Sodium (137-145) mmol/L Potassium (3.5-5.1) mmol/L Chloride (98-107) mmol/L Carbon Dioxide (22-30) mmol/L Anion Gap (5-15) MEQ/L BUN (7-17) mg/dL Creatinine (0.52-1.04) mg/dL Estimated GFR ML/MIN Glucose (74-106) mg/dL Calcium (8.4-10.2) mg/dL Magnesium (1.6-2.3) mg/dL Total Bilirubin (0.2-1.3) mg/dL AST (14-36) U/L ALT (0-35) U/L Alkaline Phosphatase (38-126) U/L Troponin I (0.000-0.034) ng/mL Serum Total Protein (6.3-8.2) g/dL Albumin (3.5-5.0) g/dL Ethyl Alcohol (0-10) mg/dL - Progress Progress: improved Progress Note: 09/04/22 18:14 CT scan of the head without contrast shows no acute ischemic changes no intracranial bleed. 09/04/22 19:25 Medical decision making: This patient supposedly has a history of CVA/stroke in the past. However all studies available to me shows no acute intracranial bleed or ischemic changes. Patient has had teleneurology evaluations on at least 3 occasions 2 of which I was involved with. Today, I had a discussion with the telemetry neurologist Dr. Camille Sharma after the patient was evaluated by her. Dr. Sharma and I are not necessarily convinced that this patient has had a s troke in the past. She is never had an MRI of the brain as she is severely claustrophobic. He may have a seizure issue. Dr. Sharma, at this time, does not feel that is necessary to give the alteplase to the patient. She is going to discuss this with the patient prior to placing the patient in observation. The plan is to monitor her overnight and obtain MRI of the brain with and without contrast tomorrow. If we have to sedate her then we will make arrangements to do that. I will await Dr. Sharma's final evaluation and report that she will provide to me soon. 09/04/22 20:23 Medical decision making: After Dr. Sharma, neurologist, evaluated her and then we made our plan for this patient to be placed in observation in the hospital, Dr. Sharma and I, independently, spoke with the patient. Patient does not want tPA at this time. Dr. Whitehead and I both feel that the patient has low probability of an acute stroke. However, the patient was offered the use of tPA and she declined. The risks and benefits and alternatives were discussed with the patient by Dr. Sharma. Dr. Sharma also spoke with the patient about placing her in observation to perform an MRI of the brain with and without contrast as well as an EEG. I also spoke with the patient as well. Patient is adamant that she does not want to undergo an MRI. She states she is too claustrophobic even if she is to sedated. I did review the risks of leaving this emergency department in terms of the possibility of having a massive stroke and even . I also discussed the benefits of staying. She is leaving AMA and will sign the AGAINST MEDICAL ADVICE form. Counseled pt/family regarding: lab results, diagnosis, rad results - Departure Departure Disposition: AMA Clinical Impression: Left-sided weakness, Anxiety about health Condition: Stable Critical Care Time: No Referrals: SERENITY MCCONNELL NP [Primary Care Provider] - Follow up/PCP as directed Instructions: Transient Ischemic Attack (DC)
[2022-09-04 18:15] LABS: Absolute Neutrophil Ct (ANC) 3.28 x10^3/uL (1.4-6.9); Basophil (Absolute #) 0.02 x10^3/uL (0-0.4); Eosinophil % 3.3 % (0.00-5.0); Eosinophil (Absolute #) 0.17 x10^3/uL (0-0.5); Hematocrit 36.8 % (35-47); Hemoglobin 11.3 g/dL (12.0-16.0); Lymphocyte (Absolute #) 1.39 x10^3/uL (1.0-4.6); Lymphocytes % 27.2 % (24.0-44.0); Mean Cell Volume 81.6 fL (78-100); Mean Corpuscular Hemoglobin 25.1 pg (26-32); Mean Corpuscular Hgb Concent. 30.7 g/dL (32-36); Mean Platelet Volume 10.6 fL (7.5-11.0); Monocyte (Absolute #) 0.24 x10^3/uL (0.0-1.3); Monocytes % 4.7 % (0.0-12.0); Neutrophil % 64.2 % (36.0-66.0); Platelet Count 211 x10^3/uL (150-450); Red Blood Count 4.51 x10^6/uL (4.1-5.4); White Blood Count 5.1 x10^3/uL (4.0-10.5)
[2022-09-04 18:28] LABS: ALBUMIN 4.4 g/dL (3.5-5.0); ALKALINE PHOSPHATASE 62 U/L (38-126); ANION GAP 10.9 MEQ/L (5-15); BLOOD UREA NITROGEN 11 mg/dL (7-17); CHLORIDE 108 mmol/L (98-107); Calcium 8.4 mg/dL (8.4-10.2); Carbon Dioxide 22 mmol/L (22-30); Creatinine 1 0.87 mg/dL (0.52-1.04); EST GLOMERULAR FILTRATION RATE > 60.0 ML/MIN; ETHYL ALCOHOL < 10 mg/dL (0-10); Glucose 97 mg/dL (74-106); MAGNESIUM 1.9 mg/dL (1.6-2.3); Potassium 4.5 mmol/L (3.5-5.1); SGOT/AST 40 U/L (14-36); SGPT/ALT 35 U/L (0-35); SODIUM 137 mmol/L (137-145); Total Protein 7.7 g/dL (6.3-8.2)
[2022-09-04 18:29] LABS: D-DIMER QUANTITATIVE 0.46 mg/L (0.0-0.50); INR 0.97 (0.8-3.0); PROTIME 10.3 SECONDS (9.4-12.5)
[2022-09-04 19:36] VITALS: BP 151/104; PULSE 62; O2SAT 99
--- NOTE | 2022-09-05 08:28 | XRAY ---
Indication: Weakness. Stroke. Multiple contiguous axial images obtained through the head without contrast. Comparison: August 02, 2022 Normal appearing brain parenchyma, ventricles, and bony calvarium. Visualized paranasal sinuses and mastoid air cells are clear. Impression: Continued normal CT head without contrast exam.
== END 2022-09-04 20:20 | disposition left against medical advice (07) ==
LOC: ED 17:22
DX: G81.94 Hemiplegia, unspecified affecting left nondominant side (principal); Z79.02 Long term (current) use of antithrombotics/antiplatelets; Z72.0 Tobacco use; Z86.73 Personal history of transient ischemic attack (TIA), and cerebral infarction without residual deficits
CPT/HCPCS: 36000; 36415; 70450; 80053; 80307; 83735; 84484; 85025; 85379; 85610; 93005; 93041; 94760; 99284; G0480

== ENCOUNTER 2023-09-19 23:41 | Emergency (ER) | payer BC ==
--- NOTE | 2023-09-20 00:07 | ERPHSYRPT ---
- History of Present Illness Time Seen by Provider: 09/19/23 23:45 Source: family Exam Limitations: no limitations Physician History: The patient is a 43-year-old who has been seen multiple times and given tPA once for similar presentations. At about 1115 she began to feel not right. Her significant other brought her in. He states she is on Plavix and should be on a n antidepressant. They have never been able to get an MRI. She is admitted admitted a couple times to this hospital and once to the hospital in [place]. At this point she just feels weak all over. She has not been to cooperative with the exam. 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[email or web address] - Vaccination Dates Date of 2cond Vaccination (if applicable): na - Review of Systems Constitutional: No Fever, No Chills Eyes: No Symptoms Ears, Nose, & Throat: No Symptoms Respiratory: No Cough, No Dyspnea Cardiac: No Chest Pain, No Edema, No Syncope Abdominal/Gastrointestinal: No Abdominal Pain, No Nausea, No Vomiting, No Diarrhea Genitourinary Symptoms: No Dysuria Musculoskeletal: No Back Pain, No Neck Pain Skin: No Rash Neurological: Gait Changes, Irritability, Lethargy, Sensory Changes, Speech Changes, No Dizziness, No Focal Weakness Psychological: No Symptoms Endocrine: No Symptoms All Other Systems: Reviewed and Negative - Past Medical History Pertinent Past Medical History: No Neurological History: Stroke ENT History: No Pertinent History Cardiac History: No Pertinent History Respiratory History: No Pertinent History Endocrine Medical History: No Pertinent History Musculoskeletal History: No Pertinent History GI Medical History: No Pertinent History History: No Pertinent History Psycho-Social History: No Pertinent History Female Reproductive Disorders: No Pertinent History Other Medical History: stoke 2-3 years ago. TPA'D 2019 - Past Surgical History Past Surgical History: Yes Neuro Surgical History: No Pertinent History Cardiac: No Pertinent History Respiratory: No Pertinent History Gastrointestinal: No Pertinent History Genitourinary: No Pertinent History Musculoskeletal: No Pertinent History Female Surgical History: Section, Tubal Ligation - Social History Smoking Status: Current every day smoker How long have you smoked: yrs Exposure to second hand smoke: No Drug Use: none Patient Lives Alone: No Significant Family History: no pertinent family hx - Female History Hx Now: No - Nursing Vital Signs Nursing Vital Signs: Initial Vital Signs Temperature 98.1 F 09/19/23 23:45 Pulse Rate 60 09/19/23 23:45 Respiratory Rate 18 09/19/23 23:45 Blood Pressure 138/99 09/19/23 23:45 O2 Sat by Pulse Oximetry 100 09/19/23 23:45 Pain Scale Pain Intensity 4 - [place] Coma Scale Best Eye Response ([place]): (4) open spontaneously Best Verbal Response ([place]): (5) oriented Best Motor Response ([place]): (6) obeys commands [place] Total: 15 - Physical Exam General Appearance: mild distress, anxiety Eye Exam: bilateral eye: PERRL, EOMI Ears, Nose, Throat Exam: normal ENT inspection, moist mucous membranes Neck Exam: normal inspection, non-tender, supple Respiratory: normal breath sounds, lungs clear, airway intact, No respiratory distress Cardiovascular: regular rate/rhythm, No edema Gastrointestinal: soft, No tenderness, No distention Back Exam: normal inspection Extremity Exam: normal inspection, No pedal edema 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 She is alert. She has global weakness in all extremities. There is no facial droop. There is nonspecific but is seem to be any visual defects. The patient is alert and oriented. She follows commands. There is no clear aphasia or dysarthria. - Course Nursing assessment & vital signs reviewed: Yes Ordered Tests: Active Orders 24 hr Category Date Time Status Soa Architect STAT Care 09/19/23 23:59 Active EKG-ER Only STAT Care 09/19/23 23:58 Active IV Insertion STAT Care 09/19/23 23:58 Active NPO (ED) STAT Care 09/19/23 23:58 Active NPO (ED) STAT Care 09/20/23 02:17 Active POCT Glucose Check ONCE Care 09/19/23 23:58 Completed Pulse Oximetry (ED) STAT Care 09/19/23 23:58 Active Re-Check Vital Signs STAT Care 09/19/23 23:58 Completed Tele-Health Consult ROUTINE Cons 09/20/23 02:17 Active CHEST 1 VIEW (PORTABLE) Stat Exams 09/19/23 23:59 Taken HEAD WITHOUT CONTRAST [CT] Stat Exams 09/19/23 23:42 Completed CBC W DIFF Stat Lab 09/19/23 23:55 Completed CMP Stat Lab 09/19/23 23:55 Completed PROTIME WITH INR Stat Lab 09/19/23 23:55 Completed PTT Stat Lab 09/19/23 23:55 Completed TROPONIN Q4H Lab 09/20/23 00:00 Completed TROPONIN Q4H Lab 09/20/23 04:00 Ordered TROPONIN Q4H Lab 09/20/23 08:00 Ordered Lab/Rad Data: Laboratory Result Diagrams 09/19/23 23:55 09/19/23 23:55 Laboratory Results 09/20/23 09/19/23 09/19/23 Range/Units 00:00 23:55 23:55 WBC (4.0-10.5) x10^3/uL RBC (4.1-5.4) x10^6/uL Hgb (12.0-16.0) g/dL Hct (35-47) % MCV (78-100) fL MCH (26-32) pg MCHC (32-36) g/dL RDW (11.5-14.0) % Plt Count (150-450) x10^3/uL MPV (7.5-11.0) fL Gran % (36.0-66.0) % Immature Gran % (Auto) (0.00-0.4) % Nucleat RBC Rel Count (0.00-0.1) % Eos # (Auto) (0-0.5) x10^3/uL Immature Gran # (Auto) (0.00-0.03) x10^3u/L Absolute Lymphs (auto) (1.0-4.6) x10^3/uL Absolute Monos (auto) (0.0-1.3) x10^3/uL Absolute Nucleated RBC (0.00-0.01) x10^3u/L Lymphocytes % (24.0-44.0) % Monocytes % (0.0-12.0) % Eosinophils % (0.00-5.0) % Basophils % (0.0-0.4) % Absolute Granulocytes (1.4-6.9) x10^3/uL Basophils # (0-0.4) x10^3/uL PT 9.5 (9.4-12.5) SECONDS INR 0.86 (0.8-3.0) APTT 26.8 (25.1-36.5) SECONDS Sodium 137 (137-145) mmol/L Potassium 3.9 (3.5-5.1) mmol/L Chloride 107 (98-107) mmol/L Carbon Dioxide 20 L (22-30) mmol/L Anion Gap 13.6 (5-15) MEQ/L BUN 12 (7-17) mg/dL Creatinine 0.91 (0.52-1.04) mg/dL Estimated GFR 81.3 ML/MIN Glucose 93 (74-106) mg/dL Calcium 9.1 (8.4-10.2) mg/dL Total Bilirubin 0.40 (0.2-1.3) mg/dL AST 40 H (14-36) U/L ALT 36 H (0-35) U/L Alkaline Phosphatase 75 (38-126) U/L Troponin I < 0.012 (0.000-0.034) ng/mL Serum Total Protein 7.7 (6.3-8.2) g/dL Albumin 4.5 (3.5-5.0) g/dL 09/19/23 Range/Units 23:55 WBC 7.5 (4.0-10.5) x10^3/uL RBC 4.77 (4.1-5.4) x10^6/uL Hgb 11.6 L (12.0-16.0) g/dL Hct 37.9 (35-47) % MCV 79.5 (78-100) fL MCH 24.3 L (26-32) pg MCHC 30.6 L (32-36) g/dL RDW 15.9 H (11.5-14.0) % Plt Count 235 (150-450) x10^3/uL MPV 10.6 (7.5-11.0) fL Gran % 46.9 (36.0-66.0) % Immature Gran % (Auto) 0.1 (0.00-0.4) % Nucleat RBC Rel Count 0.0 (0.00-0.1) % Eos # (Auto) 0.21 (0-0.5) x10^3/uL Immature Gran # (Auto) 0.01 (0.00-0.03) x10^3u/L Absolute Lymphs (auto) 3.17 (1.0-4.6) x10^3/uL Absolute Monos (auto) 0.56 (0.0-1.3) x10^3/uL Absolute Nucleated RBC 0.00 (0.00-0.01) x10^3u/L Lymphocytes % 42.2 (24.0-44.0) % Monocytes % 7.5 (0.0-12.0) % Eosinophils % 2.8 (0.00-5.0) % Basophils % 0.5 (0.0-0.4) % Absolute Granulocytes 3.52 (1.4-6.9) x10^3/uL Basophils # 0.04 (0-0.4) x10^3/uL PT (9.4-12.5) SECONDS INR (0.8-3.0) APTT (25.1-36.5) SECONDS Sodium (137-145) mmol/L Potassium (3.5-5.1) mmol/L Chloride (98-107) mmol/L Carbon Dioxide (22-30) mmol/L Anion Gap (5-15) MEQ/L BUN (7-17) mg/dL Creatinine (0.52-1.04) mg/dL Estimated GFR ML/MIN Glucose (74-106) mg/dL Calcium (8.4-10.2) mg/dL Total Bilirubin (0.2-1.3) mg/dL AST (14-36) U/L ALT (0-35) U/L Alkaline Phosphatase (38-126) U/L Troponin I (0.000-0.034) ng/mL Serum Total Protein (6.3-8.2) g/dL Albumin (3.5-5.0) g/dL Head CT did not show any acute intracranial process. This was read by radiology. Partially empty sella Chest x-ray interpreted by myself did not show any acute cardiopulmonary process Procedures: [id number] CT/HEAD WITHOUT CONTRAST CLINICAL HISTORY: weakness, disturbed speech TECHNIQUE: An axial non-contrast CT scan of the brain was performed from the skull base to the high parietal region. COMPARISON: 09/04/2022 FINDINGS: No CT delineable acute infarct at present study. Partially empty sella noted. The visualized brain parenchyma shows a normal appearance. Hurtado-white matter differentiation is maintained. No midline shifts or deformity. No intracerebral or extra axial hematoma. Normal size and configuration of the cerebral ventricles. Normal CT appearance of the posterior fossa structures namely the cerebellar hemispheres, brainstem, and cerebellar peduncles. The IACs are unremarkable. The cerebello-pontine angles are clear. The osseous structures in the skull base are unremarkable. No definite calvarium fractures. The scanned paranasal sinuses show minimal mucosal thickening in bilateral maxillary sinuses. IMPRESSION: 1. No CT delineable acute infarct at present study. Early changes of stroke may not be detected on a CT scan. If strong clinical suspicion of stroke then suggest MRI with diffusion-weighted imaging. 2. Partial Empty Sella. [facility] ER was called at [phone] at 00:29 AM EST, 09/20/2023 and results were verbally communicated to the service desk manager. Electronically Signed by: Ayaka Brand MD. (09/20/2023 00:30:11 EST) - Progress Progress Note: 09/20/23 00:06 Confusion/altered mental status/weakness History of TIA and CVA although no documenting MRI Anxiety The patient was a telemedicine neurologic consult The patient is within the window of tPA. At this point this is a difficult exam the patient is not truly cooperative. I do not find a truly focal neurologic deficit initially. I will definitely consult Neurology telemedicine Stroke protocol orders 09/20/23 01:05 Patient is being evaluated by telemedicine. Once again the CT was unremarkable. The patient actually was able to get up and go to the restroom. She was feeling better. 09/20/23 01:35 The patient was evaluated by Dr. Camille Sharma telemedicine radiology. The patient had a complete resolution of her symptoms. Her CT was unremarkable. The patient has been evaluated multiple times by teleneurology. She had stressed to the patient that she needs to follow-up with a neurologist as an outpatient. At this point the likely diagnosis could be absence seizure atypical seizures versus migraines versus and less likely TIA or stroke. Once again she has a normal CAT scan of the head. With all the events she has had in her life there should be changes related to vascular injury. At this point there is no signs of this. The most likely diagnosis is either psychosis versus seizure versus migraine. The patient were instructed to follow-up with neurology through her primary care doctor. At this point there is no signs of an acute neurologic emergency. No signs or symptoms requiring the patient to be admitted. The patient is stable for release. Counseled pt/family regarding: lab results, diagnosis, need for follow-up, rad results Medical Desision Making - Social Determinants of Health Pt's dx & treatment plan are significantly limited by SDOH: financial hardships - Diagnostic Testing Diagnostic test were ordered, analyzed, and reviewed by me: Yes Radiological Interpretation: Discussed w/ radiologist - Departure Departure Disposition: Home Clinical Impression: Headache, Altered mental status, Acute weakness, Atypical absence seizure, Anxiety about health Condition: Stable Critical Care Time: Yes Critical Care Time(excluding separately billable procedures): Critical 30-74 mins Referrals: SERENITY MCCONNELL, BUSINESS INFORMATION MANAGER [Primary Care Provider] - Follow up/PCP as directed Instructions: Transient Ischemic Attack (DC), Seizures, Adult (DC), Migraines in adults Additional Instructions: Thank you for choosing our Emergency Department for your healthcare! Please take your medicines prescribed as directed and be assured that you follow up with the physician provided or your PCP in the next 1-2 days to assure you are improving. All medical problems cannot be reasonably diagnosed in your ED visit today. Return for any changes or concerns, including if your condition does not improve or you are unable to obtain follow-up. Some final results, including radiology reports, do not return the same day, but are available on the patient portal or can be obtained through your PCP. Follow-up with neurology as an outpatient. You need to be evaluated for atypical migraines versus atypical seizures versus severe anxiety attacks Prescriptions: Hydroxyzine HCl 25 mg [Atarax 25 mg] 25 mg PO Q6H PRN #15 tablet PRN Reason: Anxiety Butalb/Acetaminophen/Caffeine [Xswsvm-Nbzbfqrm-Dtup 50-325-40] 1 each PO Q6- 8HPRN PRN #15 cap PRN Reason: Anxiety, Headache
[2023-09-20 00:09] LABS: Absolute Neutrophil Ct (ANC) 3.52 x10^3/uL (1.4-6.9); BASOPHIL % 0.5 % (0.0-0.4); Basophil (Absolute #) 0.04 x10^3/uL (0-0.4); Eosinophil % 2.8 % (0.00-5.0); Eosinophil (Absolute #) 0.21 x10^3/uL (0-0.5); Hematocrit 37.9 % (35-47); Hemoglobin 11.6 g/dL (12.0-16.0); IMMATURE GRAN # 0.01 x10^3u/L (0.00-0.03); IMMATURE GRAN % 0.1 % (0.00-0.4); Lymphocyte (Absolute #) 3.17 x10^3/uL (1.0-4.6); Lymphocytes % 42.2 % (24.0-44.0); Mean Cell Volume 79.5 fL (78-100); Mean Corpuscular Hemoglobin 24.3 pg (26-32); Mean Corpuscular Hgb Concent. 30.6 g/dL (32-36); Mean Platelet Volume 10.6 fL (7.5-11.0); Monocyte (Absolute #) 0.56 x10^3/uL (0.0-1.3); Monocytes % 7.5 % (0.0-12.0); Neutrophil % 46.9 % (36.0-66.0); Platelet Count 235 x10^3/uL (150-450); Red Blood Count 4.77 x10^6/uL (4.1-5.4); Red Cell Distribution Width 15.9 % (11.5-14.0); White Blood Count 7.5 x10^3/uL (4.0-10.5)
[2023-09-20 00:17] LABS: ALBUMIN 4.5 g/dL (3.5-5.0); ANION GAP 13.6 MEQ/L (5-15); BILIRUBIN,TOTAL 0.4 mg/dL (0.2-1.3); Calcium 9.1 mg/dL (8.4-10.2); Creatinine 1 0.91 mg/dL (0.52-1.04); EST GLOMERULAR FILTRATION RATE 81.3 ML/MIN; Potassium 3.9 mmol/L (3.5-5.1); Total Protein 7.7 g/dL (6.3-8.2)
[2023-09-20 00:18] LABS: INR 0.86 (0.8-3.0); PROTIME 9.5 SECONDS (9.4-12.5); PTT 26.8 SECONDS (25.1-36.5)
--- NOTE | 2023-09-20 00:33 | XRAY ---
CLINICAL HISTORY: weakness, disturbed speech TECHNIQUE: An axial non-contrast CT scan of the brain was performed from the skull base to the high parietal region. COMPARISON: 09/04/2022 FINDINGS: No CT delineable acute infarct at present study. Partially empty sella noted. The visualized brain parenchyma shows a normal appearance. Hurtado-white matter differentiation is maintained. No midline shifts or deformity. No intracerebral or extra axial hematoma. Normal size and configuration of the cerebral ventricles. Normal CT appearance of the posterior fossa structures namely the cerebellar hemispheres, brainstem, and cerebellar peduncles. The IACs are unremarkable. The cerebello-pontine angles are clear. The osseous structures in the skull base are unremarkable. No definite calvarium fractures. The scanned paranasal sinuses show minimal mucosal thickening in bilateral maxillary sinuses. IMPRESSION: 1. No CT delineable acute infarct at present study. Early changes of stroke may not be detected on a CT scan. If strong clinical suspicion of stroke then suggest MRI with diffusion-weighted imaging. 2. Partial Empty Sella. [facility] ER was called at [phone] at 00:29 AM EST, 09/20/2023 and results were verbally communicated to the service desk specialist. Electronically Signed by: Ayaka Brand MD. (09/20/2023 00:30:11 EST)
[2023-09-20 01:13] VITALS: TEMP 98.1
[2023-09-20 01:43] VITALS: O2SAT 100
[2023-09-20 02:20] VITALS: BP 136/89; PULSE 61; RESP 20
--- NOTE | 2023-09-20 08:48 | XRAY ---
Indication: Stroke. Weakness. Comparison: March 23, 2020 Portable chest inflated and clear. Heart borderline enlarged. Bony thorax intact. No new/acute findings.
== END 2023-09-20 02:19 | disposition home or self-care (01) ==
LOC: ED 23:41
DX: R51.9 Headache, unspecified (principal); R41.82 Altered mental status, unspecified; R53.1 Weakness; G40.A09 Absence epileptic syndrome, not intractable, without status epilepticus; F45.9 Somatoform disorder, unspecified; Z79.02 Long term (current) use of antithrombotics/antiplatelets; Z79.899 Other long term (current) drug therapy; Z72.0 Tobacco use
CPT/HCPCS: 36000; 36415; 70450; 71045; 80053; 84484; 85025; 85610; 85730; 93005; 93041; 94760; 99284; 99291

== ENCOUNTER 2024-05-03 11:53 | Emergency (ER) | payer BC ==
[2024-05-03 12:02] VITALS: TEMP 97.8
[2024-05-03 12:42] LABS: Absolute Neutrophil Ct (ANC) 3.89 x10^3/uL (1.56-6.13); BASOPHIL % 0.5 % (0.1-1.2); Basophil (Absolute #) 0.03 x10^3/uL (0.01-0.08); Eosinophil % 3.8 % (0.7-5.8); Eosinophil (Absolute #) 0.24 x10^3/uL (0.04-0.36); Hematocrit 40.9 % (34.1-44.9); Hemoglobin 12.7 g/dL (11.2-15.7); IMMATURE GRAN # 0.01 x10^3u/L (0.001-0.031); IMMATURE GRAN % 0.2 % (0.001-0.429); Lymphocyte (Absolute #) 1.79 x10^3/uL (1.18-3.74); Lymphocytes % 28.5 % (19.3-51.7); Mean Cell Volume 82.8 fL (79.4-94.8); Mean Corpuscular Hemoglobin 25.7 pg (25.6-32.2); Mean Corpuscular Hgb Concent. 31.1 g/dL (32.2-35.5); Mean Platelet Volume 10.6 fL (9.4-12.3); Monocyte (Absolute #) 0.32 x10^3/uL (0.24-0.86); Monocytes % 5.1 % (4.7-12.5); Neutrophil % 61.9 % (34.0-71.1); Platelet Count 215 x10^3/uL (182-369); Red Blood Count 4.94 x10^6/uL (3.93-5.22); Red Cell Distribution Width 16.6 % (11.7-14.4); White Blood Count 6.3 x10^3/uL (3.98-10.04)
[2024-05-03] MEDS ORDERED: Ativan 2 MG/1 ML VIAL ONE (12:44)
[2024-05-03] MEDS: Ativan 2 MG/1 ML VIAL IV ONE (12:45)
[2024-05-03 13:00] LABS: INR 0.87 (0.8-3.0); PROTIME 9.6 SECONDS (9.4-12.5); PTT 27.1 SECONDS (25.1-36.5)
--- NOTE | 2024-05-03 13:05 | XRAY ---
Indication: Numbness. Slurred speech. Confusion. Multiple contiguous images obtained without contrast. Comparison: September 19, 2023 Normal appearing brain parenchyma, ventricles, and bony calvarium. Visualized paranasal sinuses and mastoid air cells are clear. Impression: Continued normal CT head without contrast exam.
--- NOTE | 2024-05-03 13:05 | XRAY ---
Indication: Pneumonia. Comparison: March 23, 2020 Portable chest again demonstrates normal heart and lungs with incidental left mid lung calcified granuloma. Bony thorax intact. No new/acute findings.
[2024-05-03 13:06] LABS: ACETAMINOPHEN < 10 ug/ml (10-30); ETHYL ALCOHOL < 10 mg/dL (0-10); SALICYLATE < 1.0 mg/dL (2-20)
[2024-05-03 13:08] LABS: ALBUMIN 4.3 g/dL (3.5-5.0); ANION GAP 12.8 MEQ/L (5-15); BILIRUBIN,TOTAL 0.3 mg/dL (0.2-1.3); Calcium 9.4 mg/dL (8.4-10.2); Creatinine 1 0.84 mg/dL (0.52-1.04); EST GLOMERULAR FILTRATION RATE 89.5 ML/MIN; Potassium 4.6 mmol/L (3.5-5.1); Total Protein 7.1 g/dL (6.3-8.2)
[2024-05-03 13:12] LABS: Appearance Cloudy (Clear); Bacteria Many /HPF (None Seen); Bilirubin Negative (Negative); Blood Negative (Negative); Epithelial Cells Few /HPF (None Seen); Glucose, Urine Negative (Negative); Hyaline Casts NONE SEEN /LPF (0-2); Ketones Negative (Negative); Leukocyte Esterase Moderate (Negative); Nitrite Negative (Negative); Ph 6.5 (4.6-8.0); Protein,Urine Dip Negative (Negative); RBC 0-2 /HPF (0-5); Urobilinogen 0.2 mg/dL (0.2)
[2024-05-03 13:17] LABS: ADD URINE CULTURE? YES (NO)
[2024-05-03 13:22] LABS: Amphetamine,Urine NEGATIVE (NEGATIVE); Barbiturate,Urine NEGATIVE (NEGATIVE); Benzodiazepine,Urine NEGATIVE (NEGATIVE); Cocaine,Urine NEGATIVE (NEGATIVE); Methadone,Urine NEGATIVE (NEGATIVE); Opiate,Urine NEGATIVE (NEGATIVE); PCP,Urine NEGATIVE (NEGATIVE); THC,Urine NEGATIVE (NEGATIVE)
--- NOTE | 2024-05-03 13:23 | ERPHSYRPT ---
- History of Present Illness Time Seen by Provider: 05/03/24 11:57 Source: patient Exam Limitations: no limitations Patient Subjective Stated Complaint: Patient's son brought patient to ER and reports seizure activity. Upon speaking with patient, patient denies history of seizures and indicates she is here for stroke symptoms with previous stroke. Son indicates symptoms began approx 20 minutes prior to arriving in the ER today. Triage Nursing Assessment: Patient assisted out of car by staff and brought back to ER in a W/C. Assisted by 2 staff from chair to bed. Patient able to bear weight on BLE and assist with transfer. She is tearful. Leaning toward the left when sitting up on the side of the bed but slight droop noted to corner of right side of mouth. Patient indicates sensation to BUE and BLE are the same on the right and left at this time. Patient is slow to answer questions and speech is unclear at times. Patient is answering appropriately with one to two word answers to questions. Physician History: Patient here for seizure or strokelike symptoms. Patient states that she does have a history of these episodes. States that she becomes tearful and feels dizzy needs to sit down. Patient then has some combination of tonic-clonic jerking and leaning to the left. The other time she is leaning to the right. She has no fever or chills, signs or symptoms of meningitis today. She has not returned to her baseline yet. Per nursing protocols, patient was taken to head CT straight from car. Patient has been seen multiple times by neurologist, reviewing previous notes. Patient has never had an MRI secondary to claustrophobia. Reviewing old chart, patient currently supposed to be taking Plavix. Patient is taking PO well. Same number of urinations and defecations. The patient has no signs of altered mental status, nuchal rigidity, signs of meningitis. The patient is up-to-date on all vaccinations. Allergies/Adverse Reactions: nickel [Nickel] Allergy (Mild, Verified 05/03/24 11:55) Swelling Home Medications: Clopidogrel Bisulfate [PLAVIX Tablet] 1 tab PO DAILY 08/02/22 [History] Metoprolol Succinate 25 mg Xl* [Toprol-Xl 25MG Tablets] 25 mg PO DAILY 09/19/23 [History] Hx Tetanus, Diphtheria Vaccination/Date Given: Yes Hx Influenza Vaccination/Date Given: No Hx Pneumococcal Vaccination/Date Given: No Immunizations Up to Date: Yes Travel Risk - International Travel Have you traveled outside of the country in past 3 weeks: No - Emerging Infectious Disease Are you exhibiting symptoms associated with any current EIDs: No - Past Medical History Pertinent Past Medical History: No Neurological History: Stroke ENT History: No Pertinent History Cardiac History: No Pertinent History Respiratory History: No Pertinent History Endocrine Medical History: No Pertinent History Musculoskeletal History: No Pertinent History GI Medical History: No Pertinent History History: No Pertinent History Psycho-Social History: No Pertinent History Female Reproductive Disorders: No Pertinent History Other Medical History: TPA in 2019 - Past Surgical History Past Surgical History: Yes Neuro Surgical History: No Pertinent History Cardiac: No Pertinent History Respiratory: No Pertinent History Gastrointestinal: No Pertinent History Genitourinary: No Pertinent History Musculoskeletal: No Pertinent History Female Surgical History: Section, Tubal Ligation Significant Family History: no pertinent family hx - Female History Hx Last Menstrual Period: 07/2013 Hx Now: No - Social History Smoking Status: Current every day smoker How long have you smoked: yrs Exposure to second hand smoke: No Drug Use: none Patient Lives Alone: No - Social Determinants of Health Will the patient participate in the screening: Unable to obtain - Nursing Vital Signs Nursing Vital Signs: Initial Vital Signs Pulse Rate 59 L 05/03/24 11:54 Respiratory Rate 14 05/03/24 11:54 Blood Pressure 179/112 05/03/24 11:54 Pain Scale Pain Intensity 0 - Physical Exam SpO2: 100 Comments: 05/03/24 13:20 Review of Systems Constitutional: Negative for fever. HENT: Negative for congestion. Respiratory: Negative for shortness of breath. Cardiovascular: Negative for chest pain. Gastrointestinal: Negative for abdominal pain. Genitourinary: Negative for dysuria. Musculoskeletal: Negative for back pain. Skin: Negative for rash. Neurological: Negative for headaches. Seizure/stroke symptoms Psychiatric/Behavioral: Negative for behavioral problems. All other systems reviewed and are negative. Physical Exam Vitals signs and nursing note reviewed. Constitutional: Appearance: Patient is well-developed. HENT: Head: Normocephalic and atraumatic. Eyes: Conjunctiva/sclera: Conjunctivae normal. Neck: Musculoskeletal: Normal range of motion. Trachea: No tracheal deviation. Cardiovascular: Rate and Rhythm: Normal rate. Pulmonary: Effort: Pulmonary effort is normal. No respiratory distress. Abdominal: Palpations: Abdomen is soft. Musculoskeletal: General: No deformity. Skin: General: Skin is warm and dry. Neurological/ Psychiatric: Mental Status: Patient is slouching to the left, difficulty speaking. Moving all 4 extremities. Able to raise hands and feet against gravity. Does track with my light. - Course Nursing assessment & vital signs reviewed: Yes EKG Interpreted by Me: Sinus Rhythm Ordered Tests: Active Orders 24 hr Category Date Time Status [employer] STAT Care 05/03/24 12:25 Completed EKG-ER Only STAT Care 05/03/24 12:25 Completed IV Insertion STAT Care 05/03/24 12:25 Completed NPO (ED) STAT Care 05/03/24 12:25 Completed CHEST 1 VIEW (PORTABLE) Stat Exams 05/03/24 12:25 Completed HEAD WITHOUT CONTRAST [CT] Stat Exams 05/03/24 11:54 Completed ACETAMINOPHEN Stat Lab 05/03/24 12:40 Completed CBC W DIFF Stat Lab 05/03/24 12:40 Completed CMP Stat Lab 05/03/24 12:40 Completed CULTURE,URINE Stat Lab 05/03/24 13:02 Received ETHYL ALCOHOL Stat Lab 05/03/24 12:40 Completed Lactic Acid Stat Lab 05/03/24 12:49 Completed PROTIME WITH INR Stat Lab 05/03/24 12:40 Completed PTT Stat Lab 05/03/24 12:40 Completed SALICYLATE Stat Lab 05/03/24 12:40 Completed TROPONIN Q4H Lab 05/03/24 12:40 Completed TROPONIN Q4H Lab 05/03/24 16:30 Ordered TROPONIN Q4H Lab 05/03/24 20:30 Ordered UA W/RFX UR CULTURE Stat Lab 05/03/24 13:02 Completed Urine Triage Profile Stat Lab 05/03/24 13:02 Completed Medication Summary Discontinued Medications Generic Name Dose Route Start Last Admin Trade Name Freq PRN Reason Stop Dose Admin Lorazepam 1 mg 05/03/24 12:30 05/03/24 12:45 Lorazepam 2 Mg/1 Ml 2 Mg Vial IV 05/03/24 12:31 1 mg STAT ONE Administration Lorazepam Confirm 05/03/24 12:44 Lorazepam 2 Mg/1 Ml 2 Mg Vial Administered 05/03/24 12:45 Dose 2 mg .ROUTE .STK-MED ONE Lab/Rad Data: Laboratory Result Diagrams 05/03/24 12:40 05/03/24 12:40 Laboratory Results 05/03/24 05/03/24 05/03/24 Range/Units 13:02 13:02 12:49 WBC (3.98-10.04) x10^3/uL RBC (3.93-5.22) x10^6/uL Hgb (11.2-15.7) g/dL Hct (34.1-44.9) % MCV (79.4-94.8) fL MCH (25.6-32.2) pg MCHC (32.2-35.5) g/dL RDW (11.7-14.4) % Plt Count (182-369) x10^3/uL MPV (9.4-12.3) fL Gran % (34.0-71.1) % Immature Gran % (Auto) (0.001-0.429) % Nucleat RBC Rel Count (0.00-0.2) % Eos # (Auto) (0.04-0.36) x10^3/uL Immature Gran # (Auto) (0.001-0.031) x10^3u/L Absolute Lymphs (auto) (1.18-3.74) x10^3/uL Absolute Monos (auto) (0.24-0.86) x10^3/uL Absolute Nucleated RBC (0.00-0.012) x10^3u/L Lymphocytes % (19.3-51.7) % Monocytes % (4.7-12.5) % Eosinophils % (0.7-5.8) % Basophils % (0.1-1.2) % Absolute Granulocytes (1.56-6.13) x10^3/uL Basophils # (0.01-0.08) x10^3/uL PT (9.4-12.5) SECONDS INR (0.8-3.0) APTT (25.1-36.5) SECONDS Sodium (135-145) mmol/L Potassium (3.5-5.1) mmol/L Chloride (98-107) mmol/L Carbon Dioxide (22-30) mmol/L Anion Gap (5-15) MEQ/L BUN (7-17) mg/dL Creatinine (0.52-1.04) mg/dL Estimated GFR ML/MIN Glucose (74-106) mg/dL Lactic Acid 1.8 (0.4-2.0) Calcium (8.4-10.2) mg/dL Total Bilirubin (0.2-1.3) mg/dL AST (14-36) U/L ALT (0-35) U/L Alkaline Phosphatase (38-126) U/L Troponin I (0.000-0.033) ng/mL Serum Total Protein (6.3-8.2) g/dL Albumin (3.5-5.0) g/dL Urine Color Yellow (Yellow) Urine Appearance Cloudy A (Clear) Urine pH 6.5 (4.6-8.0) Ur Specific Dixon 1.010 (1.005-1.030) Urine Protein Negative (Negative) Urine Glucose (UA) Negative (Negative) mg/dL Urine Ketones Negative (Negative) Urine Blood Negative (Negative) Urine Nitrite Negative (Negative) Urine Bilirubin Negative (Negative) Urine Urobilinogen 0.2 (0.2) mg/dL Ur Leukocyte Esterase Moderate A (Negative) U Hyaline Cast (Auto) NONE SEEN (0-2) /LPF Urine Microscopic RBC 0-2 (0-5) /HPF Urine Microscopic WBC 11-20 A (0-5) /HPF Ur Epithelial Cells Few (None Seen) /HPF Urine Bacteria Many A (None Seen) /HPF Urine Culture Reflexed YES (NO) Salicylates (2-20) mg/dL Urine Opiates Level NEGATIVE (NEGATIVE) Ur Methadone NEGATIVE (NEGATIVE) Acetaminophen (10-30) ug/ml Urine Barbiturates NEGATIVE (NEGATIVE) Ur Phencyclidine (PCP) NEGATIVE (NEGATIVE) Urine Amphetamine NEGATIVE (NEGATIVE) U Benzodiazepine Level NEGATIVE (NEGATIVE) Urine Cocaine NEGATIVE (NEGATIVE) Urine Marijuana (THC) NEGATIVE (NEGATIVE) Ethyl Alcohol (0-10) mg/dL 05/03/24 05/03/24 05/03/24 Range/Units 12:40 12:40 12:40 WBC (3.98-10.04) x10^3/uL RBC (3.93-5.22) x10^6/uL Hgb (11.2-15.7) g/dL Hct (34.1-44.9) % MCV (79.4-94.8) fL MCH (25.6-32.2) pg MCHC (32.2-35.5) g/dL RDW (11.7-14.4) % Plt Count (182-369) x10^3/uL MPV (9.4-12.3) fL Gran % (34.0-71.1) % Immature Gran % (Auto) (0.001-0.429) % Nucleat RBC Rel Count (0.00-0.2) % Eos # (Auto) (0.04-0.36) x10^3/uL Immature Gran # (Auto) (0.001-0.031) x10^3u/L Absolute Lymphs (auto) (1.18-3.74) x10^3/uL Absolute Monos (auto) (0.24-0.86) x10^3/uL Absolute Nucleated RBC (0.00-0.012) x10^3u/L Lymphocytes % (19.3-51.7) % Monocytes % (4.7-12.5) % Eosinophils % (0.7-5.8) % Basophils % (0.1-1.2) % Absolute Granulocytes (1.56-6.13) x10^3/uL Basophils # (0.01-0.08) x10^3/uL PT 9.6 (9.4-12.5) SECONDS INR 0.87 (0.8-3.0) APTT 27.1 (25.1-36.5) SECONDS Sodium (135-145) mmol/L Potassium (3.5-5.1) mmol/L Chloride (98-107) mmol/L Carbon Dioxide (22-30) mmol/L Anion Gap (5-15) MEQ/L BUN (7-17) mg/dL Creatinine (0.52-1.04) mg/dL Estimated GFR ML/MIN Glucose (74-106) mg/dL Lactic Acid (0.4-2.0) Calcium (8.4-10.2) mg/dL Total Bilirubin (0.2-1.3) mg/dL AST (14-36) U/L ALT (0-35) U/L Alkaline Phosphatase (38-126) U/L Troponin I < 0.012 (0.000-0.033) ng/mL Serum Total Protein (6.3-8.2) g/dL Albumin (3.5-5.0) g/dL Urine Color (Yellow) Urine Appearance (Clear) Urine pH (4.6-8.0) Ur Specific Dixon (1.005-1.030) Urine Protein (Negative) Urine Glucose (UA) (Negative) mg/dL Urine Ketones (Negative) Urine Blood (Negative) Urine Nitrite (Negative) Urine Bilirubin (Negative) Urine Urobilinogen (0.2) mg/dL Ur Leukocyte Esterase (Negative) U Hyaline Cast (Auto) (0-2) /LPF Urine Microscopic RBC (0-5) /HPF Urine Microscopic WBC (0-5) /HPF Ur Epithelial Cells (None Seen) /HPF Urine Bacteria (None Seen) /HPF Urine Culture Reflexed (NO) Salicylates < 1.0 L (2-20) mg/dL Urine Opiates Level (NEGATIVE) Ur Methadone (NEGATIVE) Acetaminophen < 10 L (10-30) ug/ml Urine Barbiturates (NEGATIVE) Ur Phencyclidine (PCP) (NEGATIVE) Urine Amphetamine (NEGATIVE) U Benzodiazepine Level (NEGATIVE) Urine Cocaine (NEGATIVE) Urine Marijuana (THC) (NEGATIVE) Ethyl Alcohol < 10 (0-10) mg/dL 05/03/24 05/03/24 Range/Units 12:40 12:40 WBC 6.3 (3.98-10.04) x10^3/uL RBC 4.94 (3.93-5.22) x10^6/uL Hgb 12.7 (11.2-15.7) g/dL Hct 40.9 (34.1-44.9) % MCV 82.8 (79.4-94.8) fL MCH 25.7 (25.6-32.2) pg MCHC 31.1 L (32.2-35.5) g/dL RDW 16.6 H (11.7-14.4) % Plt Count 215 (182-369) x10^3/uL MPV 10.6 (9.4-12.3) fL Gran % 61.9 (34.0-71.1) % Immature Gran % (Auto) 0.2 (0.001-0.429) % Nucleat RBC Rel Count 0.0 (0.00-0.2) % Eos # (Auto) 0.24 (0.04-0.36) x10^3/uL Immature Gran # (Auto) 0.01 (0.001-0.031) x10^3u/L Absolute Lymphs (auto) 1.79 (1.18-3.74) x10^3/uL Absolute Monos (auto) 0.32 (0.24-0.86) x10^3/uL Absolute Nucleated RBC 0.00 (0.00-0.012) x10^3u/L Lymphocytes % 28.5 (19.3-51.7) % Monocytes % 5.1 (4.7-12.5) % Eosinophils % 3.8 (0.7-5.8) % Basophils % 0.5 (0.1-1.2) % Absolute Granulocytes 3.89 (1.56-6.13) x10^3/uL Basophils # 0.03 (0.01-0.08) x10^3/uL PT (9.4-12.5) SECONDS INR (0.8-3.0) APTT (25.1-36.5) SECONDS Sodium 139 (135-145) mmol/L Potassium 4.6 (3.5-5.1) mmol/L Chloride 109 H (98-107) mmol/L Carbon Dioxide 21 L (22-30) mmol/L Anion Gap 12.8 (5-15) MEQ/L BUN 12 (7-17) mg/dL Creatinine 0.84 (0.52-1.04) mg/dL Estimated GFR 89.5 ML/MIN Glucose 111 H (74-106) mg/dL Lactic Acid (0.4-2.0) Calcium 9.4 (8.4-10.2) mg/dL Total Bilirubin 0.30 (0.2-1.3) mg/dL AST 43 H (14-36) U/L ALT 40 H (0-35) U/L Alkaline Phosphatase 78 (38-126) U/L Troponin I (0.000-0.033) ng/mL Serum Total Protein 7.1 (6.3-8.2) g/dL Albumin 4.3 (3.5-5.0) g/dL Urine Color (Yellow) Urine Appearance (Clear) Urine pH (4.6-8.0) Ur Specific Dixon (1.005-1.030) Urine Protein (Negative) Urine Glucose (UA) (Negative) mg/dL Urine Ketones (Negative) Urine Blood (Negative) Urine Nitrite (Negative) Urine Bilirubin (Negative) Urine Urobilinogen (0.2) mg/dL Ur Leukocyte Esterase (Negative) U Hyaline Cast (Auto) (0-2) /LPF Urine Microscopic RBC (0-5) /HPF Urine Microscopic WBC (0-5) /HPF Ur Epithelial Cells (None Seen) /HPF Urine Bacteria (None Seen) /HPF Urine Culture Reflexed (NO) Salicylates (2-20) mg/dL Urine Opiates Level (NEGATIVE) Ur Methadone (NEGATIVE) Acetaminophen (10-30) ug/ml Urine Barbiturates (NEGATIVE) Ur Phencyclidine (PCP) (NEGATIVE) Urine Amphetamine (NEGATIVE) U Benzodiazepine Level (NEGATIVE) Urine Cocaine (NEGATIVE) Urine Marijuana (THC) (NEGATIVE) Ethyl Alcohol (0-10) mg/dL - Progress Progress: improved Progress Note: 05/03/24 13:52 Initially patient taken to head CT, stroke protocols ordered. Differential diagnosis includes stroke, TIA, seizure, absence seizure, atypical migraine, nonepileptic pseudoseizures seizures. Second history/reevaluation: Patient more alert now I was able to get more of a history from her. She did respond well to 1 mg IV Ativan. Patient does have a good neurology note on 09/19/23 of this year. In that note they state the patient has had multiple CTs, CTAs in the past for similar symptoms. They did recommend an outpatient MRI, lumbar puncture under sedation. Patient states that she has previously seen a neurologist, Dr. Nadiya Naranjo MD in the spring of this year. She states at that point in time the neurologist did not feel that she had a seizure or stroke issue. Recommend that she on antidepressants and follow-up with her PCP. Today, I did discuss obtaining another neurology consult, possible admission for MRI, continued close observation. I did state that we could have another teleneurology consult here in the emergency department. Patient states her understanding and I did describe this to the as well. They ultimately did decline. They state that these are the usual episodes that she gets. Labs appear similar to previous baselines with a negative head CT today. I did explain the risks and benefits of going home without potential examination by neurologist. They felt confident that they knew what was going on this discharge home at this point in time. Patient continues to be back to baseline, hemodynamically stable, no other obvious sinister pathology today. 05/03/24 14:28 Repeat neurological exam prior to discharge: Motor: There is no pronator drift of out-stretched arms. Muscle bulk and tone are normal. Strength is full bilaterally. Reflexes: Reflexes are 2+ and symmetric at the biceps, triceps, knees, and ankles. Plantar responses are flexor. Sensory: Light touch sense are intact in bilateral upper and lower extremities. There is no sign of neglect. Coordination: Rapid alternating movements are intact. There is no dysmetria on [id number] and [id number]. There are no abnormal or extraneous movements. Romberg is absent. Gait/Stance: Posture is normal, patient is ambultory without difficuly to bed NIH is 0. Patient is already on Plavix and aspirin. No medication changes today follow-up with the neurologist and PCP as above. Counseled pt/family regarding: lab results, diagnosis, need for follow-up, rad results - Departure Departure Disposition: Home Clinical Impression: Spells of decreased attentiveness, Difficulty speaking Condition: Stable Critical Care Time: No Referrals: SERENITY MCCONNELL NP [Primary Care Provider] - Follow up/PCP as directed
[2024-05-03 14:00] VITALS: PULSE 54; O2SAT 100
[2024-05-03 14:12] VITALS: BP 146/91; RESP 14
== END 2024-05-03 14:18 | disposition home or self-care (01) ==
LOC: ED 11:53
DX: R49.1 Aphonia (principal); R41.82 Altered mental status, unspecified; R56.9 Unspecified convulsions; Z79.02 Long term (current) use of antithrombotics/antiplatelets; Z79.899 Other long term (current) drug therapy; Z72.0 Tobacco use
CPT/HCPCS: 36000; 36415; 70450; 71045; 80053; 80143; 80179; 80307; 81001; 82077; 83605; 84484; 85025; 85610; 85730; 87077; 87086; 87186; 93005; 93041; 96374; 99284; J2060